=== PATIENT | male | born 1985 | race Caucasian/White ===

== ENCOUNTER 2022-10-02 11:38 | Inpatient (IN) | payer OTHER ==
[~2022-10-02] VITALS: Ht 180.3 cm; Wt 246.5 kg
[2022-10-02 11:56] VITALS: BP 85/52
--- NOTE | 2022-10-02 12:04 | NUR ---
PT HAD SYNCOPAL EPISODE WITH SHAKING MOTION. PT WAS BROUGHT TO BED 2 WITH ERMD AT BEDSIDE. PT SOON BECAME ALERT AND WAS ASSISTED TO BED. PT ANSWERED ALL QUESTIONS FROM ERMD. PT PRESENTS WITH EQUAL EDGE KITTER STRENGTH, SPEAKING IN FULL SENTENCES, NO FACIAL DROOP NOTED.
[2022-10-02] MEDS ORDERED: NACL 0.9% 1,000 ML IV SCH (12:10)
[2022-10-02] MEDS ORDERED: ACETAMINOPHEN EXTRA STRENGTH 500 MG TAB PO ONE (12:10)
[2022-10-02] MEDS ORDERED: NACL 0.9% 1,000 ML IV ONE ×4 (12:10→23:45)
[2022-10-02] MEDS ORDERED: PIPERACILLIN/TAZOBACTAM 3.375 GM in DEXTROSE 5% 50 ML IV ONE (12:15)
[2022-10-02] MEDS ORDERED: PIPERACILLIN/TAZOBACTAM 3.375 GM VIAL IV ONE (12:24)
[2022-10-02 12:32] LABS: BASOPHILS % (AUTO) 0.1 % (0.0-2.0); EOSINOPHILS % (AUTO) 0.3 % (0.0-4.0); HEMATOCRIT 41.8 % (36-52); HEMOGLOBIN 13.5 g/dL (12.0-18.0); LYMPHOCYTES # (AUTO) 0.4 K/uL (2.0-11.5); LYMPHOCYTES % (AUTO) 9.3 % (20.5-51.1); MEAN CORPUSCULAR HEMOGLOBIN 27 pg (27-31); MEAN CORPUSCULAR HGB CONC 32 g/dL (33-37); MEAN CORPUSCULAR VOLUME 81.9 fL (80-94); MONOCYTES % (AUTO) 0.7 % (1.7-9.3); NEUTROPHILS # (AUTO) 4.1 K/uL (1.8-7.7); NEUTROPHILS % (AUTO) 89.6 % (42.2-75.2); PLATELET COUNT (AUTO) 314 K/uL (140-450); RED CELL DISTRIBUTION WIDTH 15.2 % (11.6-13.7); WHITE BLOOD COUNT (AUTO) 4.5 K/uL (4.8-10.8)
[2022-10-02 13:19] LABS: PROTHROMBIN TIME 11.4 secs (10.8-13.4)
[2022-10-02 13:21] LABS: ALBUMIN 3.6 g/dL (3.4-5.0); ANION GAP 12.7 (8-16); ASPARTATE AMINOTRANSFERASE 19 U/L (15-37); CARBON DIOXIDE 26.9 mmol/L (21-32); CHLORIDE 101 mmol/L (98-107); CREATININE 1.4 mg/dL (0.6-1.3); GFR ARICAN-AMERICAN 74 mL/min (>90); GLUCOSE 92 mg/dL (74-106); POTASSIUM 3.6 mmol/L (3.5-5.1); SODIUM SERUM 137 mmol/L (136-145); TOTAL BILIRUBIN 1.3 mg/dL (0.0-1.0); UREA NITROGEN, BLOOD 14 mg/dL (7-18)
--- NOTE | 2022-10-02 15:52 | NUR ---
DC PLANNIN YRS OLD MALE PATIENT WAS ADMITTED FROM HOME WITH A DX OF SEPSIS. PATIENT HAS A HX OF CHRONIC LOWER EXTREMITY SWELLING, MORBID OBESITY. US VENOUS LEFT LOWER EXT SHOED NO DVT SEVER LEFT LEG EDEMA XR LEFT TIBIA/FIBULA SHOWED NO ACUTE OSSEOUS ABNORMALITY ,GENERALIZED SOFT TISSUE SWELLING. CONSULTED WITH NEPHRO, PULMO, CARDIO AND SURGEON. DC PLAN PER PATIENT RESPOND TO THE TREATMENT. CM TO FOLLOW
[2022-10-02] MEDS ORDERED: NACL 0.9% 2,000 ML IV ONE (16:30)
[2022-10-02] MEDS ORDERED: guaiFENesin DM 200/20 MG-10 ML 10 ML UDC PO PRN (16:35)
[2022-10-02] MEDS ORDERED: HYDROcodone/APAP 7.5/325 MG 1 TAB PO PRN (16:35)
[2022-10-02] MEDS ORDERED: MORPHINE SULFATE 2 MG/ML SYR IVP PRN (16:35)
[2022-10-02] MEDS ORDERED: POTASSIUM CHLORIDE 10 MEQ TABER PO PRN (16:35)
[2022-10-02] MEDS ORDERED: ZOLPIDEM 5 MG TAB PO PRN (16:35)
[2022-10-02] MEDS ORDERED: ONDANSETRON 4 MG/2 ML VIAL IM/IVP PRN (16:35)
[2022-10-02] MEDS ORDERED: DOCUSATE SODIUM 100 MG GELCAP PO PRN (16:35)
[2022-10-02] MEDS: NACL 0.9% 1,000 ML IV SCH ×2 (16:50→22:44)
[2022-10-02 17:52] LABS: ANION GAP 13.4 (8-16); CARBON DIOXIDE 24.6 mmol/L (21-32); CREATININE 2.1 mg/dL (0.6-1.3)
[2022-10-02 17:56] LABS: MAGNESIUM 1.3 mg/dL (1.8-2.4); PHOSPHORUS 1.4 mg/dL (2.5-4.9)
[2022-10-02 17:58] LABS: ALBUMIN 2.7 g/dL (3.4-5.0)
--- NOTE | 2022-10-02 19:45 | NUR ---
Patient resting in bed, A/Ox4, chest rise and fall symmetrical, no c/o pain or s/s of discomfort.
--- NOTE | 2022-10-02 20:13 | NUR ---
MED RECONCILE DONE
--- NOTE | 2022-10-02 21:30 | NUR ---
Patient resting in bed, A/Ox4, chest rise and fall symmetrical, no c/o pain or s/s of discomfort.
--- NOTE | 2022-10-02 21:40 | NUR ---
Dr. Sellers with patient. Addendum: 10/02/22 at [id number] Molina with patient.
--- NOTE | 2022-10-02 22:00 | NUR ---
Patient resting in bed, A/Ox4, chest rise and fall symmetrical, no c/o pain or s/s of discomfort.
--- NOTE | 2022-10-02 22:21 | NUR ---
Note mirela in ED - 10/02/22 at 2235 by [id number] Patient will be admitted to care of Oscar BERRIOS. Admited to Telemetry. Will go to room 126B. Belongings list completed. Report to Oscar BERRIOS. Oscar BERRIOS verbalized understanding of report, no further questions.
--- NOTE | 2022-10-02 22:30 | NUR ---
Called Dr. Goncalves 4 times, left message regarding patient's Lactic Acid 5.3 and decreased Magnesium level. Informed Dr. Goncalves to call Med/Tele floor back to speak to receiving nurse.
--- NOTE | 2022-10-02 22:30 | NUR ---
Patient will be admitted to care of Oscar BERRIOS. Admited to Telemetry. Will go to room 126B. Belongings list completed. Report to Oscar BERRIOS. Oscar BERRIOS verbalized understanding of report, no further questions.
[2022-10-02 22:55] VITALS: BP 93/36
--- NOTE | 2022-10-02 22:55 | NUR ---
Patient's Plan of Care was discussed and reviewed with ZOYA GONZALEZ:
--- NOTE | 2022-10-02 22:58 | NUR ---
PT TRANSPORTED FROM ER TO [facility] [[email or web address]] VIA GURNEY. RECEIVED REPORT FROM ER NURSE JAGUAR FOR CONTINUITY OF CARE. PT A/A/O X4, ABLE TO COMMUNICATE NEEDS. RESPIRATIONS EVEN AND UNLABORED ON RA. ATTACHED TO FITNESS WORKER. NOTED LEFT LOWER EXTREMITY SWELLING, PHOTO TAKEN AND FILED. IV SITE ON RAC 20G, INFUSING IVF. V/S TAKEN SEVERAL TIMES. 93/36 HR 135. WILL INFORM MD. MRSA TAKEN AND SENT TO LAB. PENDING URINE COLLECTION, PT AWARE AND URINAL PROVIDED. PT ORIENTED TO ROOM, UNIT AND ROUTINE. CALL LIGHT WITHIN REACH. SAFETY PRECAUTIONS IN PLACE. PT CLOSELY MONITORED. Addendum: 10/03/22 at 0306 by Oscar Guallpa LVN PT'S MG 1.3, NOT YET COVERED. LACTIC ACID 5.3. PER ER NURSE DR CLEARY WAS INFORMED REGARDING MG AND LACTIC ACID. DR CLEARY TO CALL [facility] [[email or web address]] FOR ORDERS.
[2022-10-02] MEDS ORDERED: PIPERACILLIN/TAZOBACTAM 4.5 GM VIAL IV ONE (23:14)
[2022-10-02] MEDS: PIPERACILLIN/TAZOBACTAM 4.5 GM in DEXTROSE 5% 100 ML IV SCH (23:21)
--- NOTE | 2022-10-02 23:33 | NUR ---
INFORMED DR. CLEARY BP-93/36 HR-135, NEW ORDER GIVEN AND WILL BE CARRIED OUT.
[2022-10-03] VITALS (20 sets, daily range): BP systolic 76–120; BP diastolic 33–94
--- NOTE | 2022-10-03 00:37 | NUR ---
1 L BOLUS GIVEN ORDERED, CURRENT BP-107/43 HR -138. CALL PLACED TO DR. CLEARY TO INFORM OF HR. AWAITING CALL BACK.
--- NOTE | 2022-10-03 00:37 | NUR ---
1L BOLUS GIVEN PER MD ORDER. CURRENT BP 107/43, HR 138 AND BEEN SUSTAINING IN THE 130'S. DR CLEARY WAS INFORMED. AWAITING MD'S RESPONSE.
--- NOTE | 2022-10-03 01:22 | NUR ---
RECEIVED CRITICAL LAB VALUE FOR LACTIC ACID 5.1 AND HR SUSTAINING 140'S AT THIS TIME. DR CLEARY MADE AWARE, AWAITING FOR RESPONSE.
--- NOTE | 2022-10-03 02:06 | NUR ---
WITH HR-140'S EVIN YEPEZ AWARE, PER MD MONITOR FOR NOW.
--- NOTE | 2022-10-03 04:38 | NUR ---
BP WENT DOWN AGAIN TO 89/36 AND HR STILL AT 140'S. DR CLEARY MADE AWARE. AWAITING FOR MD RESPONSE.
[2022-10-03] MEDS: NACL 0.9% 1,000 ML IV SCH ×3 (05:05→18:07)
[2022-10-03] MEDS ORDERED: PIPERACILLIN/TAZOBACTAM 2.25 GM VIAL IV ONE (05:15)
[2022-10-03 05:17] LABS: BASOPHILS % (AUTO) 0.1 % (0.0-2.0); EOSINOPHILS # (AUTO) 0.1 K/uL (0-0.4); EOSINOPHILS % (AUTO) 0.7 % (0.0-4.0); HEMATOCRIT 37.4 % (36-52); LYMPHOCYTES # (AUTO) 0.5 K/uL (2.0-11.5); LYMPHOCYTES % (AUTO) 2.6 % (20.5-51.1); MEAN CORPUSCULAR HEMOGLOBIN 26 pg (27-31); MEAN CORPUSCULAR HGB CONC 32 g/dL (33-37); MEAN CORPUSCULAR VOLUME 81.7 fL (80-94); MONOCYTES # (AUTO) 0.4 K/uL (0.8-1.0); MONOCYTES % (AUTO) 2.1 % (1.7-9.3); NEUTROPHILS # (AUTO) 17.7 K/uL (1.8-7.7); NEUTROPHILS % (AUTO) 94.5 % (42.2-75.2); PLATELET COUNT (AUTO) 280 K/uL (140-450); RED BLOOD CELL COUNT(AUTO) 4.57 MIL/uL (4.20-6.10); RED CELL DISTRIBUTION WIDTH 15.6 % (11.6-13.7); WHITE BLOOD COUNT (AUTO) 18.7 K/uL (4.8-10.8)
--- NOTE | 2022-10-03 05:28 | NUR ---
PER DR CLEARY. PT FOR TRANSFER TO ICU, NEEDS TO START LEVOPHED. CN AND HS MADE AWARE, ARRANGING TRANSFER.
[2022-10-03] MEDS: PIPERACILLIN/TAZOBACTAM 4.5 GM in DEXTROSE 5% 100 ML IV SCH (05:34)
[2022-10-03 05:51] LABS: ANION GAP 17.5 (8-16); CARBON DIOXIDE 21.2 mmol/L (21-32); CREATININE 3.3 mg/dL (0.6-1.3); POTASSIUM 4.7 mmol/L (3.5-5.1)
[2022-10-03] MEDS: ACETAMINOPHEN 325 MG TAB PO PRN ×2 (06:35→16:37)
--- NOTE | 2022-10-03 06:35 | NUR ---
PT TRANSPORTED TO ICU. GAVE REPORT TO YASH COOPER. PT AWAKE. ABLE TO HELP TRANSFER TO ICU BED. NO DISTRESS NOTED.
--- NOTE | 2022-10-03 06:58 | NUR ---
PATIENT TRANSFERRED FROM [facility], ARRIVED TO ICU AT 0610. RECEIVED REPORT FROM ZOYA BERRIOS. VITALS OBTAINED AT TIME OF TRANSFER: HR = 136, O2 SAT = 96%, R = 37, BP = 90/42, TEMP = 101.6F PATIENT WAS ADMINISTERED TYLENOL 650MG PER MD ORDERS, CURRENTLY RESTING IN BED COMFORTABLY; DOES NOT APPEAR TO BE IN DISTRESS. WILL ENDORSE TO DAY SHIFT TO FOLLOW UP WITH MD FOR ANY NEW ORDERS
--- NOTE | 2022-10-03 07:31 | NUR ---
TRANSFER OF CARE ENDORSED TO [facility]
--- NOTE | 2022-10-03 07:32 | NUR ---
RECEIVED REPORT FROM RUBBER WASHER NURSE. PATIENT LYING DOWN IN BED, AAOX4, ON ROOM AIR. NO DISTRESS NOTED. ON IVF PER MD ORDERS, NO DRIPS. LAST BP MAP GREATER THAN 65. DENIES ANY PAIN. SAFETY MEASURES IN PLACE, CALL LIGHT WITHIN REACH. WILL CONTINUE TO MONITOR.
[2022-10-03] MEDS ORDERED: VANCOMYCIN PER PHARMACY MC PRN (07:50)
[2022-10-03] MEDS ORDERED: PIPERACILLIN/TAZOBACTAM 4.5 GM in DEXTROSE 5% 100 ML IV SCH ×2 (08:04→13:00)
[2022-10-03 08:42] LABS: APPEARANCE,URINE HAZY (CLEAR); BILIRUBIN,URINE NEGATIVE (NEGATIVE); BLOOD, URINE NEGATIVE (NEGATIVE); COLOR,URINE YELLOW (YELLOW); LEUKOCYTE ESTERASE ,URINE TRACE (NEGATIVE); NITRITE, URINE NEGATIVE (NEGATIVE); PH,URINE 5.5 (5.0-9.0); UGLUCOSE NEGATIVE (NEGATIVE)
[2022-10-03 08:53] LABS: RBC,URINE 0-5 /HPF (0-5); URINE AMORPHOUS URATE 1+ /HPF (None Seen)
[2022-10-03 09:02] LABS: BARBITURATE, URINE NEGATIVE ng/ml (NEG <=200); BENZODIAZEPINE, URINE NEGATIVE ng/mL (NEG <=200); CANNABINOID, URINE NEGATIVE ng/mL (NEG <=50); COCAINE, URINE NEGATIVE ng/mL (NEG <=300); OPIATE, URINE NEGATIVE ng/mL (NEG <=2000); PHENCYCLIDINE SCREEN,URINE NEGATIVE ng/mL (NEG <=25)
[2022-10-03] MEDS: PANTOPRAZOLE 40 MG TABEC PO SCH (09:29)
[2022-10-03] MEDS: VANCOMYCIN 1.25GM PREMIX 250 ML IV SCH ×2 (09:29→20:34)
--- NOTE | 2022-10-03 09:37 | NUR ---
SCHEDULED MEDICATIONS DUE GIVEN. ASSISTED PATIENT TO BM X 1 BEDPAN, CLEANED. WILL CONTINUE TO MONITOR.
[2022-10-03] MEDS: NOREPINEPHRINE 4 MG in DEXTROSE 5% 250 ML IV PRN (10:07)
--- NOTE | 2022-10-03 10:11 | NUR ---
PATIENT HAS BEEN SCREENED AND CATEGORIZED HIGH NUTRITION RISK. PATIENT WILL BE SEEN WITHIN 1-2 DAYS OF ADMISSION. REVIEWED BY CASA PADILLA RD
--- NOTE | 2022-10-03 10:17 | NUR ---
PICC NURSE AT BEDSIDE INSERTING PICC LINE. WILL CONTINUE TO MONITOR.
--- NOTE | 2022-10-03 14:14 | NUR ---
DR. JAY AT BEDSIDE EVALUATING PATIENT. WILL CONTINUE TO MONITOR.
--- NOTE | 2022-10-03 15:39 | NUR ---
10/03/22 RD INITIAL ASSESSMENT COMPLETED PLEASE REFER TO NUTRITION ASSESSMENT UNDER CARE ACTIVITY FOR ESTIMATED NUTRITIONAL NEEDS. 1. RECOMMEND RENAL DIET TOLERATED 2. EDUCATED PT ON EVELINE NUTRITION THERAPY. 3. MONITOR GI, PO INTAKE, LAB VALUES. 4. RD TO FOLLOW-UP 2-3 DAYS, HIGH RISK REVIEWED BY CASA PADILLA RD
[2022-10-03] MEDS: LORazepam 2 MG/ML VIAL IVP PRN ×2 (16:15→23:22)
--- NOTE | 2022-10-03 16:15 | NUR ---
COMPLAINS OF ANXIETY, ATIVAN PRN IVP GIVEN PER ORDERS. WILL CONTINUE TO MONITOR.
--- NOTE | 2022-10-03 16:21 | NUR ---
DC PLANNIN YRS OLD MALE PATIENT WAS ADMITTED FROM HOME WITH A DX OF SEPSIS. PATIENT HAS A HX OF CHRONIC LOWER EXTREMITY SWELLING, MORBID OBESITY. US VENOUS LEFT LOWER EXT SHOED NO DVT SEVER LEFT LEG EDEMA XR LEFT TIBIA/FIBULA SHOWED NO ACUTE OSSEOUS ABNORMALITY ,GENERALIZED SOFT TISSUE SWELLING. CONSULTED WITH NEPHRO, PULMO, CARDIO AND SURGEON. DC PLAN PER PATIENT RESPOND TO THE TREATMENT. CM TO FOLLOW Addendum: 10/04/22 at 1627 by Citlaly Lang RN DC PLANNING: PATIENT INTUBATED SEDATED ON PRECEDEX, VERSED, VASOPRESSIN AND SODIUM BICARB DRIP . WBC 31.1 K+ 6.5 B/C 47/6.2 ADMINISTERED IV ABX UNASYN. URINE AND SPUTUM CULTURE PENDING. DR JAY ORDERED FOR TRANSFER TO HIGHER LEVEL OF CARE FOR CRRT. FAXED TO [facility] [place], [facility], [facility] ,[facility]. CM TO FOLLOW Addendum: 10/04/22 at 1640 by Citlaly Lang RN DC PLANNING: RECEIVED A CALL FROM [facility] SPOKE WITH DEZ STATED UNABLE TO TAKE PATIENT BECAUSE OF CO-MORBIDITY. CM TO FOLLOW Addendum: 10/05/22 at 1706 by Citlaly Lang RN DC PLANNING: AT 9:30 AM CM SPOKE WITH [facility] STATED UNABLE TO TAKE PATIENT , [facility] NO BED AVAILABLE [facility] DON'T HAVE CRRT. CM SPOKE WITH PATIENT'S FAMILY COUSIN SPOKES PERSON FOR THE FAMILY [phone] UPDATED PT'S CLINICAL [facility] SPOKE WITH JAQUI STATED STILL ON REVIEWING. CM TO FOLLOW Addendum: 10/05/22 at 1714 by Citlaly Lang RN DC PLANNING: CM SPOKE WITH DR RUIZ AND TAILINGS DAM LABORER, BOTH DR SPOKE WITH FAMILY UPDATED THE CURRENT SITUATION. STILL AWAITING FOR [facility] CM SPOKE WITH DR URIZ AND PER CAN ACCEPT PATIENT AT [facility] CM NOTIFIED IRIS AT [facility]. CM CALLED [facility] SPOKE WITH RYANN MINAYA FOR [place] [phone] AND FOR TRANSPORT [phone] . ARRANGED TRANSPORT WITH [facility] PLACE IT WILL CALL. CM TO FOLLOW Addendum: 10/05/22 at 1749 by Citlaly Lang RN DC PLANNING: RECEIVED A CALL FROM [facility] TRAN[facility] SPOKE WITH PETEY UPDATED PT'S CLINICAL AND PROVIDE HER DR CLEARY AND DR RUIZ'S NUMBER PER PETEY STATED SHE NEEDED THE TRANSFER BACK AGREEMENT TO BE SIGNED. SHANE NIELSEN KELLEYKENY SIGNED THE TRANSFER BACK AGREEMENT AND FAXED TO [facility]. ARRANGED TRANSPORT PLACE IT WILL CALL. UPDATED ALL LATEST INFORMATION TO FAMILY AND NURSE ICU PLS CALL [facility] [phone] WHEN BED AVAILABLE. Addendum: 10/08/22 at 1517 by Citlaly Lang RN DC PLANNING: NOLBERTO AND DR CLEARY SPOKE WITH PT'S COUSIN DISCUSSED THE HIGHER LEVEL OF CARE PATIENT IS HAVING DIALYSIS DAILY PER FAMILY INSISTED TO TRANSFER TO [facility]. RECEIVED A CALL FROM [facility] REQUESTING UPDATED CLINICALS FAXED ALL PAPERWORK. CALLED JULIO CESAR LEFT A MESSAGE FOR CYNDY . CM TO FOLLOW Addendum: 10/09/22 at 1252 by Citlaly Lang RN DC PLANNING: RECEIVED A CALL FROM [facility] [phone] SPOKE WITH JOSE J REJI STILL AWAITING FOR CLEARANCE FROM THEIR BUSINESS OFFICE. CALLED FIFI HARRELL CM COVERING FOR CYNDY TO CLARIFY THE AUTHORIZATION FROM THEIR PORTAL. CM TO FOLLOW Addendum: 10/10/22 at 0922 by Citlaly Lang RN LATE ENTRY 10/09/22 1630 CALLED [facility] TRANSFER [facility] SPOKE WITH JOSE J [phone] STATED FINANCIALLY CLEARED STILL AWAITING FOR BED AND ACCEPTING DRSiddharth CALLED [facility] STILL NO BED AVAILABLE. CALLED PT'S COUSIN MCKENZIE [phone] UPDATED THE STATUS OF TRANSFER CM TO FOLLOW Addendum: 10/10/22 at 1423 by Citlaly Lang RN DC PLANNING: RECEIVED A CALL FROM [facility] SPOKE WITH JEISON STATED DR RUIZ (MARKETING EFFECTIVENESS MANAGER) TOLD HER PATIENT NEEDS FASCIOTOMY ON HIS LOWER EXTREMITIES PER [place] SHE REQUESTED THE SURGEON NOTES TO BE FAXED. CM FAXED DR GOLDEN'S NOTES AND WOUND CARE NOTES. PER JEISON ONCE SHE HAS THAT WILL REACH OUT THE GENERAL SURGEON TO ACCEPT PATIENT. CM TO FOLLOW. Addendum: 10/10/22 at 1726 by Citlaly Lang RN DC PLANNING: RECEIVED A CALL FROM [facility] SPOKE WITH DEBBIE MENDOZA CAN ACCEPT PATIENT CAN GO TO ROOM 8315 # TO GIVE REPORT [phone] [place] [address] CIERA JAMA . ARRANGED TRANSPORT WITH [facility] UPTIME 8PM. NOTIFIED PT COUSIN FRENCH AND NURSE LEO. ARVIZU TO FOLLOW
--- NOTE | 2022-10-03 16:30 | NUR ---
ORAL TEMP 102.4, TYLENOL GIVEN AT THIS TIME.
--- NOTE | 2022-10-03 16:45 | NUR ---
RR 40'S, HR: 150-160'S SINUS TACHY, SHALLOW BREATHING, WHEEZING THROUGHOUT ALL LOBES, ATIVAN 2 MG IVP GIVEN EARLIER FOR ANXIETY. DR. JAY NOTIFIED. RT TRIED PLACING BIPAP, UNABLE TO TOLERATE, TOO ANXIOUS, HIGH FLOW STARTED AT 50% OXYGEN.
[2022-10-03] MEDS: ALBUTEROL 0.083% 2.5 MG/3 ML NEBU INH PRN ×3 (17:00→19:51)
--- NOTE | 2022-10-03 18:09 | NUR ---
PATIENT ANXIOUS, CONTINUES TO TAKE OFF HIGH FLOW, SAYS OXYGEN NOISE MAKES HIM ANXIOUS. WILL CONTINUE TO MONITOR.
--- NOTE | 2022-10-03 18:10 | NUR ---
ATTEMPTED TO PLACE PAINTING CATHETER, UNABLE TO SEE PENIS OR URETHRA OPENING, ANOTHER RN TRIED, FAILED WELL. WILL CONTINUE MONITOR.
--- NOTE | 2022-10-03 19:28 | NUR ---
GAVE REPORT TO SPORTS UMPIRE NURSE FOR CONTINUITY OF CARE.
--- NOTE | 2022-10-03 19:30 | NUR ---
RECEIVED PT ON BED AAOX4, DENIES PAIN AT THIS TIME, SEVERELY DYSPNEIC.NOT ON O2 SUPPLEMENT WHEN RECEIVED. EXPLAINED TO PT IMPORTANCE OF O2 AND BEING COM[PLIANT WITH CARE, VERBALIZED UNDERSTANDING. RESTARTED HI-FLOW ORDERED, BUT EVERY IT SLID OFF FROM EARLOBES. RT TENRIISM AT BEDSIDE MADE AWARE THAT PT NOW AGREES TO BIPAP. PT'S DAD AT BEDSIDE UPDATED ON PT CONDITION, NODDED FOR UNDERSTANDING. HR 150'S. CONT TO MONITOR.
--- NOTE | 2022-10-03 20:08 | NUR ---
PT'S COUSIN TANVIR BILLINGSLEY AT BEDSIDE WITH PT'S DAD, UPDATED ON PT CONDITION. RE EDUCATED PT AGAIN REGARDING IMPORTANCE OF BIPAP, BOTH COUSIN AND PT'S DAD ABLE TO WITNESS RE-EDUCATION, PT VERBALIZED UNDERSTANDING. RT AT BEDSIDE.
--- NOTE | 2022-10-03 20:28 | NUR ---
BIPAP ON. PT REMAINS DYSPNEIC, HR 150'S, ON LEVOPHED AT 4 MCG. ASSESSMENT CONTINUED. PT IS MORBIDLY OBESE, LLE MORE SWOLLEN THAN RIGHT AND WITH REDNESS. NEEDS ATTENDED. CALL LIGHT WITHIN REACH. CONT TO MONITOR.
--- NOTE | 2022-10-03 20:30 | NUR ---
PT IN RESPIRATORY DISTRESS. RR IN 40s, HR 150s. SPO2 92% TO 96%. PT VERY ANXIOUS. PT's DAD AND COUSIN AT BEDSIDE, ALL RESPIRATORY QUESTIONS WERE ANSWERED. EXPLAINED TO FAMILY THAT PT HAS BEEN REFUSING BiPAP AND CONTINUES TO TAKE OFF HFNC. RISKS AND BENEFITS WERE EXPLAINED. FAMILY WERE ABLE TO CONVINCE PT TO TRY BiPAP. PT WAS PLACED ON BiPAP. 14/7, 14, 40%. BiPAP CONNECTED TO RED OUTLET.
--- NOTE | 2022-10-03 20:50 | NUR ---
PT REMOVING BIPAP, NOT FOLLOWING SIMPLE INSTRUCTIONS/COMMANDS. PT ALSO PULLING OUT LEADS. PT VERY NOT COOPERATIVE WITH CARE. HR AND RR REMAINS HIGH.
--- NOTE | 2022-10-03 20:50 | NUR ---
PT TOOK BiPAP MASK OFF. REFUSED TO BE PLACED BACK. PLACED HIM ON 5L NC PT TOOK IT OFF. PT's SPO2 IN 90s ON ROOM AIR, RR STILL IN 40s AND HR 150s. STILL ANXIOUS.
--- NOTE | 2022-10-03 21:05 | NUR ---
PAGED GROUP CONTRACT ANALYST CHARACTER IMPERSONATOR DR. JAY.
--- NOTE | 2022-10-03 21:10 | NUR ---
MESSAGE LEFT FOR DR. JAY REGARDING PT CRITICAL CONDITION. AWAITING FOR A RETURN CALL.
--- NOTE | 2022-10-03 21:15 | NUR ---
RECEIVED A RETURN CALL FROM DR. JAY - UPDATED ON PT CONDITION. ORDERED TO START PRECEDEX DRIP PER HOSP PROTOCOL AND TO INFORM ER FOR INTUBATION IF CONDITION WORSENS. RELAYED INFO LEANNA PATIENT, VERBALIZED UNDERSTANDING.
--- NOTE | 2022-10-03 21:17 | NUR ---
DR. JAY CALLED BACK. DOCTOR WAS INFORMED THAT PT WAS PLACED ON BiPAP DUE TO INCREASE WOB RR 40s AND HR 140s. PT TOOK OFF BiPAP AND REFUSING ALL RESPIRATORY INTERVENTION AT THIS TIME. PT NOW ON ROOM AIR WITH SPO2 IN 90s. STILL IN RESPIRATORY DISTRESS. DR JAY SPOKE TO RN AND ORDERED FOR PRECEDEX.
[2022-10-03] MEDS ORDERED: DEXMEDETOMIDINE HCL 100 MCG/ML 2 ML VIAL IV ONE ×2 (21:24→23:59)
[2022-10-03] MEDS: DEXMEDETOMIDINE HCL 400 MCG in NACL 0.9% 96 ML IV PRN (21:41)
--- NOTE | 2022-10-03 21:58 | NUR ---
CALLED AND SPOKE WITH PT'S COUSIN AGAIN, INFORMING HIM PT REQUESTING HIM AND HIS DAD TO COME HERE. PT'S COUSIN TANVIR BILLINGSLEY SAID HE WILL COME WITH PT'S DAD. RELAYED INFO TO PT. PT REMAINS NONCOMPLIANT WITH CARE, REFUSING OW2 AND/OR BIPAP AT THIS TIME. RT AT BEDSIDE.
--- NOTE | 2022-10-03 22:15 | NUR ---
PT PULLED OUT PICC LINE, CONT TO REFUSE TO BE MONITORED AND O2 SUPPLEMENT. PT ORIENTED X4, DENIES PAIN AT THIS TIME. TRANSFERRED INFUSION TO PERIPHERAL LINE G#20 RIGHT AC.
--- NOTE | 2022-10-03 22:37 | NUR ---
ABG RESULTS WERE REPORTED TO DR. JAY. DOCTOR ORDERED TO PLACED PT BACK ON BiPAP. DAD AND COUSIN AT BEDSIDE, PT STILL REFUSED TO USED BiPAP. RISKS AND BENEFITS EXPLAINED. SPO2 88 TO 90 0N 4L NC. RR IN 40s. PT PULL OUT PICC LINE.
--- NOTE | 2022-10-03 23:55 | NUR ---
PT'S SISTER, DAD AND COUSIN AT BEDSIDE UPDATED ON PT CONDITION. PT WITH PERIODS OF SEVERE AGITATION.
[2022-10-04] VITALS (26 sets, daily range): BP systolic 65–128; BP diastolic 27–81
[2022-10-04] MEDS ORDERED: AMPICILLIN/SULBACTAM 1.5 GM in NACL 0.9% 50 ML IV SCH ×2
[2022-10-04] MEDS: NACL 0.9% 1,000 ML IV SCH ×2 (00:09→06:46)
[2022-10-04] MEDS ORDERED: AMPICILLIN/SULBACTAM 1.5 GM VIAL ONE (00:20)
[2022-10-04] MEDS: AMPICILLIN/SULBACTAM 1.5 GM in NACL 0.9% 50 ML IV SCH ×3 (00:22→12:55)
[2022-10-04] MEDS ORDERED: DEXMEDETOMIDINE HCL 100 MCG/ML 2 ML VIAL IV ONE (02:09)
--- NOTE | 2022-10-04 02:32 | NUR ---
MESSAGE LEFT FOR DR. JAY REGARDING PT'S WORSENING CONDITION. NEW ORDERS GIVEN, NOTED AND CARRIED OUT.
[2022-10-04] MEDS: MIDAZOLAM MDV 50 MG in NACL 0.9% 40 ML IV PRN ×3 (02:44→12:08)
[2022-10-04] MEDS ORDERED: MIDAZOLAM MDV 50 MG/10 ML VIAL IV ONE (02:44)
--- NOTE | 2022-10-04 03:00 | NUR ---
PT INTUBATED RESTRAINTS IN PLACE.
[2022-10-04] MEDS: fentaNYL citrate 1 MG in NACL 0.9% 80 ML IV PRN ×3 (03:02→08:11)
[2022-10-04] MEDS ORDERED: fentaNYL citrate 0.05 MG/ML VIAL ONE ×2 (03:02→06:46)
[2022-10-04] MEDS ORDERED: PROPOFOL 200 MG/20 ML VIAL IV ONE (03:10)
--- NOTE | 2022-10-04 03:40 | NUR ---
SPUTUM COLLECTED AND SENT TO LAB
--- NOTE | 2022-10-04 03:45 | NUR ---
CALLED TO BEDSIDE FOR INTUBATION PER DR. JAY. PT WAS SUCCESSFULLY INTUBATED BY DR. EPPERSON (ER DOCTOR) AT APPROXIMATELY 0353. ETT SIZE 8.0 AND SECURED @26cm @TEETH. BILATERAL BREATH SOUNDS ON AUSCULTATION, COLOR CHANGE ON CO2 DETECTOR. X RAY ORDERED. PT WAS PLACED ON VENT AND VENT CONNECTED TO RED OUTLET. ALARMS SET AND FUNCTIONING. SETTINGS PRVC 16, 500, +8, 100. Addendum: 10/04/22 at 0519 by Arturo Boo RT TIME OF INTUBATION 0253
[2022-10-04] MEDS ORDERED: VASOPRESSIN 20 UNITS/ML VIAL ONE ×2 (04:20→18:05)
[2022-10-04] MEDS ORDERED: VASOPRESSIN 40 UNITS in NACL 0.9% 250 ML IV SCH (04:25)
--- NOTE | 2022-10-04 04:30 | NUR ---
ABG RESULTS REPORTED TO DR. JAY. VENT CHANGES MADE PER DR. JAY. RR INCREASED FROM 16 TO 20, VT 500 TO 550 ABOUT 7mL OF PT's IBW. PEEP FROM 8 TO 6cmH20. FiO2 TITRATED TO 60%.
[2022-10-04] MEDS ORDERED: SODIUM BICARBONATE 4.2% 5 MEQ/10 ML SYR IV SCH (04:35)
[2022-10-04] MEDS ORDERED: NOREPINEPHRINE 4 MG/4 ML VIAL IV ONE ×3 (04:36→21:31)
[2022-10-04] MEDS: NOREPINEPHRINE 4 MG in DEXTROSE 5% 250 ML IV PRN (04:42)
[2022-10-04 05:48] LABS: BASOPHILS # (AUTO) 0.3 K/uL (0.00-0.22); EOSINOPHILS # (AUTO) 0.7 K/uL (0-0.4); EOSINOPHILS % (AUTO) 2.1 % (0.0-4.0); HEMATOCRIT 37.7 % (36-52); LYMPHOCYTES # (AUTO) 0.6 K/uL (2.0-11.5); LYMPHOCYTES % (AUTO) 2.1 % (20.5-51.1); MEAN CORPUSCULAR HEMOGLOBIN 26 pg (27-31); MEAN CORPUSCULAR HGB CONC 32 g/dL (33-37); MEAN CORPUSCULAR VOLUME 82.6 fL (80-94); MONOCYTES # (AUTO) 0.7 K/uL (0.8-1.0); MONOCYTES % (AUTO) 2.3 % (1.7-9.3); NEUTROPHILS # (AUTO) 28.8 K/uL (1.8-7.7); NEUTROPHILS % (AUTO) 92.5 % (42.2-75.2); PLATELET COUNT (AUTO) 287 K/uL (140-450); RED BLOOD CELL COUNT(AUTO) 4.56 MIL/uL (4.20-6.10); RED CELL DISTRIBUTION WIDTH 16.2 % (11.6-13.7)
[2022-10-04 05:51] LABS: WHITE BLOOD COUNT (AUTO) 31.1 K/uL (4.8-10.8)
[2022-10-04 06:17] LABS: ANION GAP 18.8 (8-16); CARBON DIOXIDE 22.7 mmol/L (21-32)
[2022-10-04 06:22] LABS: CREATININE 6.2 mg/dL (0.6-1.3); POTASSIUM 6.5 mmol/L (3.5-5.1)
--- NOTE | 2022-10-04 06:30 | NUR ---
MESSAGED DR PIÑA FOR WBC 31.1. AFEBRILE AT THIS TIME.
--- NOTE | 2022-10-04 07:00 | NUR ---
RECEIVED PT ON PRVC 550,F20,+6, 60%. PT SATURATION WAS 100%, TITRATED FI02 TO 50%. VENT WHEELS ARE LOCKED, PLUGGED INTO RED OUTLET, AMBUBAG AT BEDSIDE, ALARMS ARE SET AND AUDIBLE. ABG SCHEDULED AT 0800. WILL CONTINUE TO MONITOR.
--- NOTE | 2022-10-04 07:15 | NUR ---
CALLED AND LEFT MESSAGEAS FOR PT'S COUSIN TANVIR AND PT'S SISTER PARESH. AWAITING FOR RETURN CALL.
[2022-10-04] MEDS ORDERED: SODIUM BICARBONATE 8.4% PFS 50 MEQ/50 ML SYR IVP ONE (07:25)
--- NOTE | 2022-10-04 07:30 | NUR ---
PT SEDATED, RASS -2. ENDORSED TO INCOMING NURSE HOLLIE. GEN CONDITION CRITICAL.
--- NOTE | 2022-10-04 07:55 | NUR ---
SLOANE COMPLETED AND SENT MESSAGE TO DR. JAY. NO VENT CHANGES AT THIS TIME.
[2022-10-04] MEDS ORDERED: SODIUM ZIRCONIUM CYCLOSILICATE 10 GM POWD.PACK PO SCH (08:00)
[2022-10-04] MEDS ORDERED: DEXTROSE 50% 50 ML SYR IVP SCH (08:00)
[2022-10-04] MEDS ORDERED: INSULIN REGULAR, HUMAN 100 UNIT/ML VIAL IV SCH (08:00)
[2022-10-04] MEDS ORDERED: CALCIUM GLUC 1 GM/50 mL NS BAG 50 ML IV SCH (08:00)
[2022-10-04] MEDS ORDERED: NACL 0.9% 1,000 ML IV SCH (08:05)
--- NOTE | 2022-10-04 08:16 | NUR ---
FATHER PRESENT AT BEDSIDE AND DR. EVIN DOWNEY. PHONE CALL TO VIDEO MANAGER ID #[id number] TO TRANSLATE MOHAWK AND UPDATE FATHER ON PT STATUS. CONSENT FOR PICC LINE ALSO OBTAINED.
[2022-10-04] MEDS: PANTOPRAZOLE 40 MG TABEC PO SCH (09:00)
[2022-10-04] MEDS: SODIUM BICARBONATE 8.4% 150 MEQ in DEXTROSE 5% 1,000 ML IV SCH ×2 (10:18→20:07)
--- NOTE | 2022-10-04 11:24 | NUR ---
INSERTED 12 FR COUDE TIP PAINTING CATHETER WITH IMMEDIATE RETURN OF YELLOW URINE OUTPUT. PT TOLERATED WELL.
[2022-10-04] MEDS: ACETAMINOPHEN 325 MG TAB PO PRN (11:42)
[2022-10-04] MEDS: HYDROCORTISONE NA SUCC 100 MG/2 ML VIAL IV SCH ×2 (12:54→12:55)
[2022-10-04] MEDS: PHENYLEPHRINE 10 MG in NACL 0.9% 250 ML IV PRN ×2 (12:55→14:42)
[2022-10-04] MEDS: PHENYLEPHRINE 40 MG in NACL 0.9% 250 ML IV PRN ×3 (12:55→22:43)
[2022-10-04] MEDS ORDERED: EPINEPHrine 1 mg/mL 6 MG in DEXTROSE 5% 250 ML IV PRN (13:30)
--- NOTE | 2022-10-04 13:54 | NUR ---
ABG DONE. TEXT DR JAY WITH RESULTS. PH 7.245,PCO2 42.6, HC03 18.1, BE -8.8. THB 12.8, COHB 0.9, METHB 0.3, FHHB 1.9, O2 SAT 97.0. VENT RATE INCREASE FROM 25 TO 30. REPEAT ABG AT 050Sep.
--- NOTE | 2022-10-04 14:26 | NUR ---
ALFIE BILLINGSLEY CALLED AND ASKED TO TRANSFER PT TO ANOTHER HOSPITAL. DR. JAY SAID WE CAN CONSULT CASE MANAGEMENT TO TRANSFER TO HOSPITAL WITH CRRT IF POSSIBLE.
[2022-10-04] MEDS ORDERED: PHENYLEPHRINE 10 MG/ML VIAL ONE ×2 (15:52→15:54)
--- NOTE | 2022-10-04 16:12 | NUR ---
DC PLANNING ASSESSMENT COMPLETE PLEASE REFER TO ASSESSMENT FOR DETAILS PT CURRENTLY HAS HLOC ORDER PENDING, CM WORKING ON IDENTIFYING HLOC PLACEMENT Addendum: 10/04/22 at 1613 by Oralia MILLAN Amended: Links added.
[2022-10-04] MEDS: fentaNYL citrate - 50mL vial 2.5 MG in NACL 0.9% 200 ML IV PRN (16:47)
[2022-10-04] MEDS ORDERED: CEFEPIME 1,000 MG in DEXTROSE 5% 50 ML IV SCH (17:05)
[2022-10-04 17:36] LABS: ALBUMIN 2.6 g/dL (3.4-5.0); ANION GAP 21.2 (8-16); CARBON DIOXIDE 20.1 mmol/L (21-32); POTASSIUM 5.3 mmol/L (3.5-5.1)
[2022-10-04 17:37] LABS: CREATININE 7.1 mg/dL (0.6-1.3)
--- NOTE | 2022-10-04 18:00 | NUR ---
P.T. NOTES HOLD P.T. TX, WILL AWAIT P.T. RE EVAL ORDER POST EXTUBATION; BP=88/45, TJ=522, O2 SAT=96%; WBC=31.1, CREATININE=7.1
--- NOTE | 2022-10-04 18:24 | NUR ---
RECEIVED REPORT FROM AM SHIFT. PATIENT WAS SEEN AND ASSESSED. PATIENT IS INTUBATED WITH ETT SIZE 8.0 AND SECURED WITH A BITING BLOCK ANCHOR-FAST 27cm @ TEETH. PATIENT IS ON VENTILATOR SUPPORT. VENTILATOR PLUGGED IN RED OUTLET. VENTILATOR ALARMS SET APPROPRIATELY AND AUDIBLE TO ENVIRONMENT. AMBU BAG AT BEDSIDE. HEAD OF BED GREATER THAN 30 DEGREES. NOTICED ADEQUATE BILATERAL CHEST RISE AND FALL. PATIENT IS IN NO RESPIRATORY DISTRESS AT THIS TIME. VENT SETTINGS: AC/PRVC RR 30, TARGETED Vt 550, PEEP 6, FiO2 50% WITH SPO2 OF 97%. BILATERAL BREATH SOUNDS ON AUSCULTATION; UPPER LOBES: COARSE CRACKLES LOWER LOBES: COARSE CRACKLES. SUCTION: SMALL AMOUNT OF WHITE THIN/THICK SECRETIONS FROM ETT AND SMALL WHITE THIN ORALLY.
--- NOTE | 2022-10-04 20:01 | NUR ---
END OF SHIFT NOTE. PT RECVD ON 2MCG/KG/HR OF FENT, MAXXED OUT ON LEVO AND NOREPI GTT. ER MD PLACED TLC. PT VS UNSTABLE. FAMILY NOTIFIED. SEE FLOWSHEET FOR FURTHER INFO. WILL CONT TO MONITOR
[2022-10-04] MEDS: CEFEPIME 1,000 MG in DEXTROSE 5% 50 ML IV SCH (20:38)
[2022-10-04] MEDS: NOREPINEPHRINE 16 MG in DEXTROSE 5% 250 ML IV PRN (22:40)
[2022-10-04] MEDS: DEXMEDETOMIDINE HCL 400 MCG in NACL 0.9% 96 ML IV PRN (22:43)
--- NOTE | 2022-10-04 23:35 | NUR ---
AT BEDSIDE, SPO2 97%. TITRATED FiO2 FROM 50% TO 45%. SPO2 97%. PT TOLERATING WELL AT THIS TIME. RN NOTIFIED. WILL CONTINUE TO MONITOR PT.
[2022-10-05] VITALS (31 sets, daily range): BP systolic 108–147; BP diastolic 43–91
[2022-10-05] MEDS ORDERED: DEXMEDETOMIDINE HCL 100 MCG/ML 2 ML VIAL IV ONE (00:14)
[2022-10-05] MEDS: DEXMEDETOMIDINE HCL 400 MCG in NACL 0.9% 96 ML IV PRN (00:37)
[2022-10-05] MEDS: HYDROCORTISONE NA SUCC 100 MG/2 ML VIAL IV SCH ×4 (00:47→17:38)
[2022-10-05] MEDS: AMPICILLIN/SULBACTAM 1.5 GM in NACL 0.9% 50 ML IV SCH ×2 (00:47→12:02)
--- NOTE | 2022-10-05 04:13 | NUR ---
AT BEDSIDE, SPO2 97%. TITRATED FiO2 FROM 45% TO 40%. SPO2 96%. PT TOLERATING WELL AT THIS TIME. RN NOTIFIED. WILL CONTINUE TO MONITOR PT.
[2022-10-05 05:32] LABS: BASOPHILS % (AUTO) 0.1 % (0.0-2.0); EOSINOPHILS # (AUTO) 0.3 K/uL (0-0.4); EOSINOPHILS % (AUTO) 1.1 % (0.0-4.0); HEMOGLOBIN 11.9 g/dL (12.0-18.0); LYMPHOCYTES # (AUTO) 0.4 K/uL (2.0-11.5); LYMPHOCYTES % (AUTO) 1.8 % (20.5-51.1); MEAN CORPUSCULAR HEMOGLOBIN 26 pg (27-31); MEAN CORPUSCULAR HGB CONC 32 g/dL (33-37); MEAN CORPUSCULAR VOLUME 80.7 fL (80-94); MONOCYTES # (AUTO) 0.7 K/uL (0.8-1.0); MONOCYTES % (AUTO) 2.8 % (1.7-9.3); NEUTROPHILS % (AUTO) 94.2 % (42.2-75.2); PLATELET COUNT (AUTO) 206 K/uL (140-450); RED BLOOD CELL COUNT(AUTO) 4.59 MIL/uL (4.20-6.10); RED CELL DISTRIBUTION WIDTH 16.1 % (11.6-13.7); WHITE BLOOD COUNT (AUTO) 24.4 K/uL (4.8-10.8)
[2022-10-05 06:23] LABS: ANION GAP 18.9 (8-16); CARBON DIOXIDE 21.2 mmol/L (21-32); POTASSIUM 5.1 mmol/L (3.5-5.1)
[2022-10-05 06:25] LABS: CREATININE 7.8 mg/dL (0.6-1.3)
--- NOTE | 2022-10-05 07:15 | NUR ---
RECEIVED PT ON PRVC 550,F30, +6,40%. VENT WHEELS ARE LOCKED, PLUGGED INTO RED OUTLET, AMBUBAG AT BEDSIDE, ALARMS ARE SET AND AUDIBLE. BREATH SOUNDS WERE CLEAR, SATURATION WAS 97%. WILL CONTINUE TO MONITOR.
[2022-10-05] MEDS: MIDAZOLAM MDV 50 MG in NACL 0.9% 40 ML IV PRN ×2 (07:29→14:43)
[2022-10-05] MEDS: CEFEPIME 1,000 MG in DEXTROSE 5% 50 ML IV SCH ×2 (08:45→21:44)
[2022-10-05] MEDS: SODIUM BICARBONATE 8.4% 150 MEQ in DEXTROSE 5% 1,000 ML IV SCH ×2 (09:53→19:35)
[2022-10-05] MEDS: NOREPINEPHRINE 16 MG in DEXTROSE 5% 250 ML IV PRN (09:54)
[2022-10-05] MEDS: PANTOPRAZOLE 40 MG INJ VIAL IVP SCH (09:56)
[2022-10-05] MEDS ORDERED: CALCIUM GLUC 1 GM/50 mL NS BAG 50 ML IV ONE (10:40)
[2022-10-05] MEDS ORDERED: SODIUM BICARBONATE 8.4% PFS 50 MEQ/50 ML SYR IVP SCH (10:46)
[2022-10-05] MEDS ORDERED: MIDAZOLAM 2 MG/2 ML VIAL ONE (10:47)
--- NOTE | 2022-10-05 10:47 | NUR ---
Dr. Tana adam, pt's father Scott present at bedside and informed regarding dialysis and dialysis catheter placement. Consent signed. Flight Control Tower Operator utilized for consent and updates: Carson ID#[id number]
[2022-10-05] MEDS: fentaNYL citrate - 50mL vial 2.5 MG in NACL 0.9% 200 ML IV PRN (11:00)
[2022-10-05] MEDS ORDERED: MIDAZOLAM 5 MG/5 ML VIAL IV ONE (12:00)
[2022-10-05] MEDS: CALCIUM GLUC 1 GM/50 mL NS BAG 50 ML IV SCH ×2 (12:01→13:22)
--- NOTE | 2022-10-05 12:49 | NUR ---
Pt's father Scott provided with updates via land acquisition manager ID# [id number]
[2022-10-05 15:52] LABS: ALBUMIN 2.2 g/dL (3.4-5.0); ANION GAP 18.4 (8-16); CARBON DIOXIDE 21.4 mmol/L (21-32); POTASSIUM 4.8 mmol/L (3.5-5.1); TOTAL BILIRUBIN 2.3 mg/dL (0.0-1.0)
[2022-10-05 15:59] LABS: CREATININE 8.5 mg/dL (0.6-1.3)
--- NOTE | 2022-10-05 16:21 | NUR ---
[address] JAY. NO VENT CHANGES AT THIS TIME. PT CURRENTLY ON PRVC 550,30,+6,40%. WILL CONTINUE TO MONITOR.
--- NOTE | 2022-10-05 16:26 | NUR ---
10/05/22 RD FOLLOW UP COMPLETED PLEASE REFER TO NUTRITION ASSESSMENT UNDER CARE ACTIVITY FOR ESTIMATED NUTRITIONAL NEEDS. 1. CONTINUE NPO, PER MD 2. WHEN/IF MEDICALLY APPROPRIATE, RECOMMEND RENAL DIET - IF PT GETS TUBE FEEDING, RECOMMEND NEPRO @35 ML/HR, FWF 100 ML Q4H, WILL PROVIDE 840 ML TOTAL VOLUME, 1512 KCALS, 68 G PROTEIN, 1210 ML FREE WATER, MEETING 84% ESTIMATED CALORIE NEEDS AND 100% ESTIMATED PROTEIN NEEDS 3. MONITOR LAB VALUES. 4. RD TO FOLLOW-UP 2-3 DAYS, HIGH RISK REVIEWED BY CASA PADILLA RD
--- NOTE | 2022-10-05 16:30 | NUR ---
Dialysis being done at bedside.
--- NOTE | 2022-10-05 18:06 | NUR ---
Covid PCR collected and sent to lab
--- NOTE | 2022-10-05 19:15 | NUR ---
Dialysis complete, 1L output.
--- NOTE | 2022-10-05 19:25 | NUR ---
Endorsed plan of care to RN. Informed regarding PCR re-collection.
[2022-10-05] MEDS ORDERED: SODIUM BICARBONATE 8.4% PFS 50 MEQ/50 ML SYR IVP ONE (20:17)
[2022-10-05 20:30] LABS: ALBUMIN 2.2 g/dL (3.4-5.0); ANION GAP 15.1 (8-16); CARBON DIOXIDE 25.9 mmol/L (21-32); TOTAL BILIRUBIN 2.5 mg/dL (0.0-1.0)
[2022-10-05 20:34] LABS: CREATININE 6.6 mg/dL (0.6-1.3)
[2022-10-05] MEDS: SODIUM BICARBONATE 8.4% 50 MEQ in NACL 0.45% 1,000 ML IV SCH (20:44)
[2022-10-06] VITALS (31 sets, daily range): BP systolic 96–152; BP diastolic 42–84
[2022-10-06] MEDS: AMPICILLIN/SULBACTAM 1.5 GM in NACL 0.9% 50 ML IV SCH ×2 (00:45→12:35)
[2022-10-06] MEDS: HYDROCORTISONE NA SUCC 100 MG/2 ML VIAL IV SCH ×4 (00:45→17:13)
[2022-10-06] MEDS ORDERED: SODIUM BICARBONATE 8.4% PFS 50 MEQ/50 ML SYR IVP ONE (02:33)
[2022-10-06] MEDS: SODIUM BICARBONATE 8.4% 50 MEQ in NACL 0.45% 1,000 ML IV SCH ×2 (03:36→13:43)
[2022-10-06 06:07] LABS: HEMATOCRIT 32.9 % (36-52); HEMOGLOBIN 10.4 g/dL (12.0-18.0); MEAN CORPUSCULAR HEMOGLOBIN 25 pg (27-31); MEAN CORPUSCULAR HGB CONC 32 g/dL (33-37); MEAN CORPUSCULAR VOLUME 79.1 fL (80-94); PLATELET COUNT (AUTO) 152 K/uL (140-450); RED BLOOD CELL COUNT(AUTO) 4.16 MIL/uL (4.20-6.10); RED CELL DISTRIBUTION WIDTH 15.4 % (11.6-13.7); WHITE BLOOD COUNT (AUTO) 19.2 K/uL (4.8-10.8)
[2022-10-06 06:24] LABS: ANION GAP 23.3 (8-16); CARBON DIOXIDE 24.4 mmol/L (21-32); POTASSIUM 4.7 mmol/L (3.5-5.1)
[2022-10-06 06:43] LABS: CREATININE 7.1 mg/dL (0.6-1.3)
[2022-10-06 07:06] LABS: LYMPHOCYTES % (MANUAL) 3 % (20-46); MONOCYTES % (MANUAL) 3 % (5-12)
--- NOTE | 2022-10-06 07:17 | NUR ---
PT ENDORSED TO WILLY BERRIOS. LEVOPHED X 4 WAS LEFT AT 2 AND AND VASOPRESSIN ON AT 0.03. UNABLE TO FULLY TURN DUE TO LIMITED SIZE BUT ROM COMPLETED ON EXTREMITIES TO BEST OF ABILITY AND WIPED DOWN WITH BATH WIPES. AND PT IS PENDING POSSIBLE TO TRANSFER OUT FOR FASCIOTOMY. VERSED IS ON AT 7. PT WAS AFEBRILE OVER NIGHT.
--- NOTE | 2022-10-06 07:30 | NUR ---
Recieved report from off going nurse, patient is resting in bed, no apparent distress noted, tolerating mechanical ventilation well. VSS on telemetry with Levophed infusing at 4.8mcg/kg/min for BP support. Patient has soft wrist restraints in place, with good circulation checks note. BLE pulses present by doppler x4. OGT clamped, placement verified by auscultation. Patient is sedated to Rass -3/-4 with Fentanyl 0.68mcg/kg/h and Versed 7mg/h. No apparent distress noted.
[2022-10-06] MEDS: MIDAZOLAM MDV 50 MG in NACL 0.9% 40 ML IV PRN ×3 (08:06→22:57)
[2022-10-06] MEDS: CEFEPIME 1,000 MG in DEXTROSE 5% 50 ML IV SCH ×2 (08:39→21:22)
[2022-10-06] MEDS: PANTOPRAZOLE 40 MG INJ VIAL IVP SCH (08:40)
--- NOTE | 2022-10-06 12:47 | NUR ---
RN RECEIVED A CALL FROM IRVING AT [facility] ([phone]) ASKING FOR F/U ON PATIENT TRANSFER FOR CRRT, STATES NO ICU BEDS AT [facility] AT THIS TIME.
--- NOTE | 2022-10-06 15:15 | NUR ---
REPOSITION ,COMPLETED BED BATH ,SKIN CARE ORAL CARE AND CATHETERS CARE GIVE GENERAL SKIN IS DRY AND WARM TO TOUCH.LEFT LEG REMAIN HAVING CELLULITIS AND GETTING VERY LARGE TO BE DOUBLE SIZE OF NORMAL REG SIZE. THE PEDAL PULSE IS PRESENT BY DROPPER.
--- NOTE | 2022-10-06 15:49 | NUR ---
[id number] HD RN at bedside, HD in progress, VSS, gtt rates unchanged, patient tolerated HD with 1.6L fluid removal well. Patient turned and bathed with the assistance of 6 people and RT at bedside. Patient tolerated activity well.
--- NOTE | 2022-10-06 19:20 | NUR ---
RECEIVED REPORT FROM WILLY BERRIOS FOR CONTINUITY OF CARE FOR THIS PT.PT IS LYING SUPINE WITH HIS EYES CLOSED HE'S ORALLY INTUBATED WITH A OGT IN PLACE, AND HE'S NPO PT IS ON THE VENTILATOR WITH SETTING OF AC/PRVC FI02 @ 40%, TV 550, PEEP 5 AND A RATE OF 30. HE'S TOLERATING THE SETTING WELL. HE'S SEDATED ON FENTANYL AND VERSED.AND IS MAINTAINED AT A RASS-3. HIS IV ACCESS IS LAC 20 GAUGE PERIPHERAL IV AND A RIGHT INTERNAL JUGULAR TRIPLE LUMEN. HE IS RECEIVING SODIUM BICARB IN .45 NORMAL SALINE @ 125CC/HOUR. PT IS ON LEVOPHED FOR HYPOTENSION . HE HAS GENERALIZED EDEMA NON -PITTING PT ALSO HAS A PAM CATH IN THE RIGHT GROIN AREA FOR DIALYSIS. HE WAS DIALYZED O2/ WITH A LOSS OF 1.6 LITERS REMOVED. PT IS IN SOFT WRIST RESTRAINTS.. NO INJURIES TO DATE. ABD IS VERY DISTENDED WITH HYPOACTIVE BOWEL SOUNDS. HE HAS A PAINTING CATH IN PLACE WITH A SMALL AMT OF YELLOW URINE DRAINING.
--- NOTE | 2022-10-06 19:22 | NUR ---
Patient resting in bed, no apparent distress, tolerating mechanical ventilation well. Patient remains restrained, gtt rates unchanged. Report given to oncoming nurseRidge
[2022-10-06] MEDS: fentaNYL citrate - 50mL vial 2.5 MG in NACL 0.9% 200 ML IV PRN (20:25)
[2022-10-07] VITALS (32 sets, daily range): BP systolic 102–131; BP diastolic 52–77
--- NOTE | 2022-10-07 | NUR ---
ORAL CARE GIVEN SCANT AMT OF ORAL SECRETIONS.
[2022-10-07] MEDS: AMPICILLIN/SULBACTAM 1.5 GM in NACL 0.9% 50 ML IV SCH ×2 (00:26→12:26)
[2022-10-07] MEDS: HYDROCORTISONE NA SUCC 100 MG/2 ML VIAL IV SCH ×4 (00:26→17:59)
[2022-10-07 06:16] LABS: HEMATOCRIT 32.6 % (36-52); HEMOGLOBIN 10.6 g/dL (12.0-18.0); MEAN CORPUSCULAR HEMOGLOBIN 26 pg (27-31); MEAN CORPUSCULAR HGB CONC 33 g/dL (33-37); MEAN CORPUSCULAR VOLUME 78.7 fL (80-94); PLATELET COUNT (AUTO) 154 K/uL (140-450); RED BLOOD CELL COUNT(AUTO) 4.14 MIL/uL (4.20-6.10); RED CELL DISTRIBUTION WIDTH 15.6 % (11.6-13.7)
--- NOTE | 2022-10-07 06:23 | NUR ---
PT LEFT FOOT IS EXTREMELY SWOLLEN AND RED. THE PULES IS PALPABLE BUT WEAKER THAN THE RIGHT FOOT PULSE.
--- NOTE | 2022-10-07 06:25 | NUR ---
PT'S HEART RATE DROPPED TO 48 BUT WASN'T SUSTAINED, BUT THE PROPOFOL WAS DECREASED BACK TO 55MCG.
[2022-10-07 06:42] LABS: ANION GAP 16.5 (8-16); CARBON DIOXIDE 25.8 mmol/L (21-32); POTASSIUM 4.3 mmol/L (3.5-5.1)
[2022-10-07 06:45] LABS: CREATININE 7.4 mg/dL (0.6-1.3)
--- NOTE | 2022-10-07 07:15 | NUR ---
RECEIVED REPORT FROM FISHERIES DIRECTOR JOAN BERRIOS. PT IS SEDATED. ETT TO VENT. AC PRVC 40%, VT 550, RATE 30, PEEP 6. RT IJ TRIPLE LUMEN, RUNNING LEVO @ 2.848 MCG/MIN, VERSED @ 7 MG/H, FENTANYL @ 0.682 MCG/KG/H. LT AC 20G, RUNNING 1/2 NS @ 5 MLS/H. HD CATHETER TO RT GROIN. PAINTING IN PLACE TO GRAVITY, URINE LIGHT KVNG. LLE EXTREME SWELLING. OGT CLAMPED. NPO EXCEPT MEDS. HOB ELEVATED, BED TO LOWEST POSITION, CALL LIGHT WITHIN REACH, WILL CONTINUE TO MONITOR.
[2022-10-07] MEDS ORDERED: MIDAZOLAM MDV 50 MG/10 ML VIAL IV ONE (07:17)
[2022-10-07 07:18] LABS: BASOPHILS % (MANUAL) 0 % (0-2); EOSINOPHILS % (MANUAL) 2 % (0-4); LYMPHOCYTES % (MANUAL) 11 % (20-46); MONOCYTES % (MANUAL) 8 % (5-12)
[2022-10-07] MEDS: CEFEPIME 1,000 MG in DEXTROSE 5% 50 ML IV SCH ×2 (08:34→21:30)
[2022-10-07] MEDS: PANTOPRAZOLE 40 MG INJ VIAL IVP SCH (08:34)
--- NOTE | 2022-10-07 10:25 | NUR ---
DR RODRIGUEZ ROUNDING AT BESIDE. UPDATED PT INFORMATION.
--- NOTE | 2022-10-07 11:00 | NUR ---
FAMILY/COUSIN AT BEDSIDE. UPDATED PT INFORMATION.
--- NOTE | 2022-10-07 11:15 | NUR ---
DR YEE ROUNDING AT BEDSIDE. UPDATED PT INFORMATION.
--- NOTE | 2022-10-07 14:26 | NUR ---
YASH BARKSDALE CALLED FOR TUBE FEEDING RECOMMENDATION SAID IT WAS OKAY PER RN. RD CALCULATED TUBE FEEDING FORMULA AND LEFT MESSAGE WITH YASH SEVILLA. RECOMMENDED NEPRO WITH A GOAL RATE OF 50 ML/HR, STARTING AT 10 ML/HR AND INCREASING BY 10 ML Q4H UNTIL GOAL RATE IS REACHED; FWF 150 ML Q4H OR PER . RN ACKNOWLEDGED.
[2022-10-07] MEDS: fentaNYL citrate - 50mL vial 2.5 MG in NACL 0.9% 200 ML IV PRN (15:00)
--- NOTE | 2022-10-07 17:15 | NUR ---
DR SHAW ROUNDING AT BEDSIDE. UPDATED PT INFORMATION.
[2022-10-07] MEDS: MIDAZOLAM MDV 50 MG in NACL 0.9% 40 ML IV PRN (18:41)
--- NOTE | 2022-10-07 19:15 | NUR ---
ENDORSED TO BACK UP WORKER EZEQUIEL RN FOR CONTINUITY OF CARE. ALL QUESTION ANSWERED.
--- NOTE | 2022-10-07 19:50 | NUR ---
PEEP TITRATED TO +5. PT MILEY WELL
[2022-10-08] VITALS (25 sets, daily range): BP systolic 116–145; BP diastolic 65–101
[2022-10-08 05:54] LABS: BASOPHILS % (AUTO) 0.2 % (0.0-2.0); EOSINOPHILS # (AUTO) 0.5 K/uL (0-0.4); EOSINOPHILS % (AUTO) 2.4 % (0.0-4.0); HEMATOCRIT 31.9 % (36-52); HEMOGLOBIN 10.3 g/dL (12.0-18.0); LYMPHOCYTES # (AUTO) 1.2 K/uL (2.0-11.5); LYMPHOCYTES % (AUTO) 5.8 % (20.5-51.1); MEAN CORPUSCULAR HEMOGLOBIN 26 pg (27-31); MEAN CORPUSCULAR HGB CONC 32 g/dL (33-37); MEAN CORPUSCULAR VOLUME 78.9 fL (80-94); MONOCYTES # (AUTO) 0.3 K/uL (0.8-1.0); MONOCYTES % (AUTO) 1.6 % (1.7-9.3); NEUTROPHILS # (AUTO) 18.3 K/uL (1.8-7.7); PLATELET COUNT (AUTO) 181 K/uL (140-450); RED BLOOD CELL COUNT(AUTO) 4.04 MIL/uL (4.20-6.10); RED CELL DISTRIBUTION WIDTH 15.7 % (11.6-13.7); WHITE BLOOD COUNT (AUTO) 20.3 K/uL (4.8-10.8)
[2022-10-08] MEDS: HYDROCORTISONE NA SUCC 100 MG/2 ML VIAL IV SCH ×5 (05:59→23:42)
[2022-10-08] MEDS: MIDAZOLAM MDV 50 MG in NACL 0.9% 40 ML IV PRN ×2 (06:00→12:07)
[2022-10-08] MEDS: fentaNYL citrate - 50mL vial 2.5 MG in NACL 0.9% 200 ML IV PRN (06:02)
[2022-10-08 06:18] LABS: ANION GAP 17.4 (8-16); CARBON DIOXIDE 27.3 mmol/L (21-32); POTASSIUM 4.7 mmol/L (3.5-5.1)
[2022-10-08 06:20] LABS: CREATININE 8.1 mg/dL (0.6-1.3)
--- NOTE | 2022-10-08 07:40 | NUR ---
Received report from shift foreman, family is insisting to be transferred to [facility] hospital. Pt. is asleep, on vent, tach midline and patent. In stable condition. Vasopressors on hold. VS stable. OG-tube intact and patent. F/C intact and patent. Will cont. to monitor.
[2022-10-08] MEDS: CEFEPIME 1,000 MG in DEXTROSE 5% 50 ML IV SCH ×2 (08:40→22:03)
[2022-10-08] MEDS: PANTOPRAZOLE 40 MG INJ VIAL IVP SCH (08:43)
--- NOTE | 2022-10-08 09:10 | NUR ---
RP at the bedside, insisted to transfer pt. to [facility]. PMD made aware.
--- NOTE | 2022-10-08 11:12 | NUR ---
PT. WITH LISBET TO ICU INTUBATED WITH LOW TAYLOR SCALE TO VERY HIGH RISK, BLE CELLULITIS WITH LYMPHEDEMA. RLE SKIN ERYTHEMA, +1 EDEMA, DRY NO OPEN WOUND. LLE NO ERYTHEMA, WEEPING BLISTERING SKIN WITH +3 EDEMA. POC DISCUSSED WITH PRIMARY RN CORINNA. CONTINUE TO FOLLOW PRESSURE INJURY PREVENTION INTERVENTIONS. -CLEANSE BLE WITH NS, PAT DRY, APPLY XEROFORM DRESSING AND COVER WITH ABSORBENT PAD DAILY AND PRN IF SOILING -APPLY FOAM DRESSING TO SACRALCOCCYX, ELBOWS AND HEELS PREVENTION, PLEASE OFFLOAD SACRALCOCCYX AREA -PRESSURE REDISTRIBUTION SURFACE THERAPY HILL ROM EXCEL BARIATRIC BED /MATTRESS -POSITIONING: TURN AND REPOSITION PATIENT Q 2H OR SOONER USE PILLOWS TO KEEP BONY PROMINENCES FROM DIRECT CONTACT WITH SURFACES USE REPOSITIONING WEDGES TO PROVIDE 30-DEGREE ANGLE FOR SIDE LYING POSITIONS OFFLOADING OR FOAM DRESSING TO ALL TUBING TO PREVENT MEDICAL DEVICES RELATED PRESSURE INJURY -RE-EVALUATING AND MANAGING INCONTINENCE MONITOR SKIN CONDITION DURING POSITION CHANGE DO NOT MASSAGE REDNESS, BONY PROMINENCES FREQUENT ZEB-CARE AND PROVIDE BARRIER CREAMS PRN IF SOILING MOISTURE CONTROL BY OFFER BED OZUNA/URINAL /ABSORBENT PAD TO WICK AND HOLD MOISTURE KEEP SKIN DRY AND PROTECT FROM FRICTION -MANAGE FRICTION/SHEAR/MOBILITY KEEP HOB AT THE LOWEST LEVEL OF ELEVATION NO MORE THAN 30 DEGREE UNLESS OTHERWISE CONTRAINDICATED USE LIFT SHEET OR TRANSFER DEVICE TO MOVE PATIENT AND PREVENT LATERAL SHEER. PROTECT HEELS, ELBOWS BONY PROMINENCES WITH SKIN BERRIES OR FOAM DRESSING IF EXPOSED TO FRICTION OFFLOAD BILATERAL HEELS BY PLACING PILLOWS UNDER CALVES AT ALL TIMES, UNLESS OTHERWISE CONTRAINDICATED -NUTRITION: PLEASE FOLLOW RD RECOMMENDATIONS AND OFFER NUTRITION SUPPLEMENTS IF ORDERED. PLEASE CONTACT WOUND CARE NURSE FOR ANY QUESTION AND CHANGE OF WOUND CONDITION.
[2022-10-08] MEDS: AMPICILLIN/SULBACTAM 1.5 GM in NACL 0.9% 50 ML IV SCH ×4 (12:09→23:42)
[2022-10-08] MEDS: NON ADHERENT DRESSING TP SCH (13:38)
--- NOTE | 2022-10-08 14:26 | NUR ---
10/08/22 RD FOLLOW UP COMPLETED PLEASE REFER TO NUTRITION ASSESSMENT UNDER CARE ACTIVITY FOR ESTIMATED NUTRITIONAL NEEDS. 1. WHEN MEDICALLY APPROPRIATE, RECOMMEND INCREASING TUBE FEEDING RATE TO NEPRO @50 ML/HR, FWF 100 ML Q6H - WILL PROVIDE 1200 ML TOTAL VOLUME, 2160 KCALS, 97 G PROTEIN, AND 1272 ML FREE WATER, MEETING 92% ESTIMATED CALORIE NEEDS AND 100% ESTIMATED PROTEIN NEEDS, ADEQUATE 2. MONITOR RESIDUALS AND LAB VALUES. 3. RD TO FOLLOW-UP 2-3 DAYS, HIGH RISK REVIEWED BY CASA PADILLA RD
[2022-10-08] MEDS: MIDAZOLAM MDV 100 MG in NACL 0.9% 80 ML IV PRN ×2 (18:14→23:45)
--- NOTE | 2022-10-08 18:34 | NUR ---
pt. on dialysis, removed 1.5L
--- NOTE | 2022-10-08 19:35 | NUR ---
Report received fromSKYE RN at the bedside, met pt eyes open and follows verbal command. Moves all extremities but generalized weakness noted, ETT to vent tolerating well O2 sat 100% diminished lungs sounds oral care done, suction via ETT for airway clearance, OGT auscultated, for placement verification, no residual noted, vitals signs stable afebrile SR on the monitor generalized edema, pt on Bariatric bed for comfort also to prevent skin breakdown, restraints applied for safety as he have attempted to pul out the ETT, ongoing support and close monitoring for safety. Will continue to monitor and treat for safety.
--- NOTE | 2022-10-08 20:30 | NUR ---
Family were here pt's father friend and sibling updates education on care, they verbalized understanding, emotional support and encouraged to verbalized their concerns. They were grateful for the care pt is receiving in this facility.
[2022-10-08] MEDS: LORazepam 2 MG/ML VIAL IVP PRN (23:41)
[2022-10-09] VITALS (26 sets, daily range): BP systolic 92–144; BP diastolic 43–89
[2022-10-09] MEDS: fentaNYL citrate - 50mL vial 2.5 MG in NACL 0.9% 200 ML IV PRN ×2 (00:33→13:43)
[2022-10-09 05:33] LABS: BASOPHILS # (AUTO) 0.1 K/uL (0.00-0.22); BASOPHILS % (AUTO) 0.2 % (0.0-2.0); EOSINOPHILS # (AUTO) 0.6 K/uL (0-0.4); EOSINOPHILS % (AUTO) 1.8 % (0.0-4.0); HEMATOCRIT 34.6 % (36-52); HEMOGLOBIN 11.2 g/dL (12.0-18.0); LYMPHOCYTES # (AUTO) 2.6 K/uL (2.0-11.5); LYMPHOCYTES % (AUTO) 7.9 % (20.5-51.1); MEAN CORPUSCULAR HEMOGLOBIN 25 pg (27-31); MEAN CORPUSCULAR HGB CONC 32 g/dL (33-37); MEAN CORPUSCULAR VOLUME 78.3 fL (80-94); MONOCYTES # (AUTO) 0.7 K/uL (0.8-1.0); NEUTROPHILS # (AUTO) 29.1 K/uL (1.8-7.7); NEUTROPHILS % (AUTO) 88.1 % (42.2-75.2); PLATELET COUNT (AUTO) 233 K/uL (140-450); RED BLOOD CELL COUNT(AUTO) 4.42 MIL/uL (4.20-6.10); RED CELL DISTRIBUTION WIDTH 15.8 % (11.6-13.7)
[2022-10-09] MEDS: HYDROCORTISONE NA SUCC 100 MG/2 ML VIAL IV SCH ×4 (06:19→23:59)
[2022-10-09 06:25] LABS: ANION GAP 17.5 (8-16); POTASSIUM 4.5 mmol/L (3.5-5.1)
--- NOTE | 2022-10-09 07:10 | NUR ---
Assumed pt care report received from Deepthi BERRIOS. Met pt fully sedated ongoing Fentanyl , Versed and Propofol drips tolerating well. ETT to ventilator FIO2 60% A/C PRVC diminished lungs sounds oral care and suctioned for airway clearance. OGT placement checked via auscultation also no residual from the tube feeding. Vitals signs stable afebrile with continue to monitor and treat as per care plan. Addendum: 10/09/22 at 2253 by Agency 01 YASH BERRIOS timed changed
[2022-10-09 07:19] LABS: CREATININE 7.8 mg/dL (0.6-1.3)
--- NOTE | 2022-10-09 07:20 | NUR ---
Change of shift report given to CORINNA BERRIOS, for continuity of care, updates at the bedside pt restful as at this time vitals signs stable and no changes in care plan
[2022-10-09] MEDS: PANTOPRAZOLE 40 MG INJ VIAL IVP SCH (08:27)
[2022-10-09] MEDS: CEFEPIME 2,000 MG in DEXTROSE 5% 100 ML IV SCH (08:28)
[2022-10-09] MEDS ORDERED: VANCOMYCIN PER PHARMACY MC PRN (08:55)
[2022-10-09] MEDS: MIDAZOLAM MDV 100 MG in NACL 0.9% 80 ML IV PRN (09:06)
[2022-10-09] MEDS: LORazepam 2 MG/ML VIAL IVP PRN (09:54)
--- NOTE | 2022-10-09 10:45 | NUR ---
OVERRIDE HOLDAL 5MG DUE TO PT AGITATION AND RESTLESSNESS.
[2022-10-09] MEDS ORDERED: HALOPERIDOL IM 5 MG/ML VIAL ONE (10:46)
[2022-10-09] MEDS ORDERED: HALOPERIDOL IM 5 MG/ML VIAL IM SCH (11:00)
--- NOTE | 2022-10-09 11:25 | NUR ---
PT FIO2 INCREASED TO 50% FROM 32% DUE TO DESATING HAPPENING WHILE PT WAS RECEIVING DIALYSIS. WILL MONITOR AND TITRATE DOWN PT AFTER DIALYSIS. NO DISTRESS NOTED RN AWARE OF CHANGE
[2022-10-09] MEDS: PROPOFOL 1000 MG/100 ML PREMIX 100 ML IV PRN ×2 (11:40→20:18)
[2022-10-09] MEDS: AMPICILLIN/SULBACTAM 1.5 GM in NACL 0.9% 50 ML IV SCH (12:00)
[2022-10-09] MEDS ORDERED: fentaNYL citrate 1 MG in NACL 0.9% 80 ML IV PRN (12:45)
[2022-10-09] MEDS ORDERED: CEFEPIME IV SCH (13:00)
[2022-10-09] MEDS ORDERED: DEXTROSE 5% IV SCH (13:00)
[2022-10-09] MEDS ORDERED: fentaNYL citrate - 50mL vial 2.5 MG in NACL 0.9% 200 ML IV PRN ×2 (13:10→13:40)
--- NOTE | 2022-10-09 13:25 | NUR ---
Dialysis done and removed 2.6L fluid
[2022-10-09] MEDS: NON ADHERENT DRESSING TP SCH (13:29)
[2022-10-09] MEDS ORDERED: VANCOMYCIN 1,000 MG in DEXTROSE 5% 250 ML IV SCH (16:00)
[2022-10-09 18:44] LABS: APPEARANCE,URINE CLEAR (CLEAR); BILIRUBIN,URINE NEGATIVE (NEGATIVE); BLOOD, URINE 2+ (NEGATIVE); COLOR,URINE YELLOW (YELLOW); LEUKOCYTE ESTERASE ,URINE TRACE (NEGATIVE); NITRITE, URINE NEGATIVE (NEGATIVE); PH,URINE 5.5 (5.0-9.0); UGLUCOSE NEGATIVE (NEGATIVE)
--- NOTE | 2022-10-09 19:45 | NUR ---
Assumed pt care report received from Deepthi BERRIOS. Met pt fully sedated ongoing Fentanyl , Versed and Propofol drips tolerating well. ETT to ventilator FIO2 60% A/C PRVC diminished lungs sounds oral care and suctioned for airway clearance. OGT placement checked via auscultation also no residual from the tube feeding. Vitals signs stable afebrile with continue to monitor and treat as per care plan
[2022-10-09] MEDS: QUEtiapine FUMARATE 25 MG TAB PO SCH (20:18)
[2022-10-10] VITALS (30 sets, daily range): BP systolic 104–134; BP diastolic 67–78
[2022-10-10] MEDS: AMPICILLIN/SULBACTAM 1.5 GM in NACL 0.9% 50 ML IV SCH ×2 (00:01→12:00)
[2022-10-10] MEDS: PROPOFOL 1000 MG/100 ML PREMIX 100 ML IV PRN ×7 (00:04→21:18)
[2022-10-10] MEDS: fentaNYL citrate - 50mL vial 2.5 MG in NACL 0.9% 200 ML IV PRN ×2 (00:07→15:38)
[2022-10-10] MEDS: MIDAZOLAM MDV 100 MG in NACL 0.9% 80 ML IV PRN ×2 (00:08→08:00)
[2022-10-10 05:51] LABS: BASOPHILS # (AUTO) 0.1 K/uL (0.00-0.22); BASOPHILS % (AUTO) 0.3 % (0.0-2.0); EOSINOPHILS # (AUTO) 0.7 K/uL (0-0.4); EOSINOPHILS % (AUTO) 2.2 % (0.0-4.0); HEMATOCRIT 32.7 % (36-52); HEMOGLOBIN 10.5 g/dL (12.0-18.0); LYMPHOCYTES # (AUTO) 1.1 K/uL (2.0-11.5); LYMPHOCYTES % (AUTO) 3.4 % (20.5-51.1); MEAN CORPUSCULAR HEMOGLOBIN 25 pg (27-31); MEAN CORPUSCULAR HGB CONC 32 g/dL (33-37); MEAN CORPUSCULAR VOLUME 78.6 fL (80-94); MONOCYTES # (AUTO) 0.8 K/uL (0.8-1.0); MONOCYTES % (AUTO) 2.4 % (1.7-9.3); NEUTROPHILS # (AUTO) 31.1 K/uL (1.8-7.7); NEUTROPHILS % (AUTO) 91.7 % (42.2-75.2); PLATELET COUNT (AUTO) 247 K/uL (140-450); RED BLOOD CELL COUNT(AUTO) 4.15 MIL/uL (4.20-6.10)
[2022-10-10] MEDS: HYDROCORTISONE NA SUCC 100 MG/2 ML VIAL IV SCH ×3 (06:06→18:19)
[2022-10-10 06:10] LABS: WHITE BLOOD COUNT (AUTO) 33.9 K/uL (4.8-10.8)
[2022-10-10 06:12] LABS: ANION GAP 19.4 (8-16); CARBON DIOXIDE 25.5 mmol/L (21-32); POTASSIUM 4.9 mmol/L (3.5-5.1)
[2022-10-10 06:38] LABS: CREATININE 7.3 mg/dL (0.6-1.3)
--- NOTE | 2022-10-10 07:18 | NUR ---
Critical lab value results sent to Dr Her infectious disease WBC was [address] Krish Calvert notified of BUN 119 and Creatinine 7.3
--- NOTE | 2022-10-10 07:30 | NUR ---
RECEIVED REPORT FROM MANAGER PEDIATRIC RN. PT IS SEDATED. ETT TO VENT. AC PRVC 60%, VT 550, RATE 30, PEEP 5. RT IJ TRIPLE LUMEN, VERSED @ 15 MG/H, FENTANYL @ 0.809 MCG/KG/H, PROPOFOL @ 20MCG/KG/MIN. LT AC 20G, RUNNING 1/2 NS @ 5 MLS/H. HD CATHETER TO RT GROIN. PAINTING IN PLACE TO GRAVITY, URINE CLOUDY YELLOW WITH SEDIMENTS. LLE EXTREME SWELLING. OGT TO TUBE FEEDING. HOB ELEVATED, BED TO LOWEST POSITION, CALL LIGHT WITHIN REACH, WILL CONTINUE TO MONITOR.
--- NOTE | 2022-10-10 07:32 | NUR ---
Bedside report given to Zachery RN for continuity of care went over all the drips Fentanyl, Versed and Propofol, pt's condition on admission, response to tx care plan and ventilator settings as at this time pt's vitals signs stable no sign of distress.
[2022-10-10] MEDS: QUEtiapine FUMARATE 25 MG TAB PO SCH ×2 (09:00→21:00)
[2022-10-10] MEDS: PANTOPRAZOLE 40 MG INJ VIAL IVP SCH (09:00)
[2022-10-10] MEDS: CEFEPIME 2,000 MG in DEXTROSE 5% 100 ML IV SCH (09:00)
--- NOTE | 2022-10-10 09:00 | NUR ---
NOTIFIED DR GOLDEN ABOUT REPLACING HD CATH. DR GOLDEN WILL COME SEE PT
[2022-10-10] MEDS: NON ADHERENT DRESSING TP SCH (13:20)
--- NOTE | 2022-10-10 15:24 | NUR ---
WOUN CARE AND ZEB CARE DONE. TURNED AND REPOSITIONED
--- NOTE | 2022-10-10 18:30 | NUR ---
REPORT GIVEN TO GINA GARVIN RN IN [facility] [phone]. RAPID COVID TEST RESULT FAXED [phone]. P/U TIME
--- NOTE | 2022-10-10 21:19 | NUR ---
PT WAS TRANSFERED AND ENDORSED TO [facility] AT 2109 [place] [facility]SFERR[facility] [place] [facility] WITHOUT COMPLICATION. VENT MANAGED BY [facility] RN. TUBE FEEDING DISCONNECTED PRIOR TO TRANSFER AT 1929.
== END 2022-10-10 21:10 | disposition home or self-care (01) | DRG 720 ==
LOC: MED 11:38 → MTU 16:33 → MMU 21:08 → MIC 10-03 06:05
PROVIDERS: ADMIT Student in an Organized Health Care Education/Training Program; ATTEND Student in an Organized Health Care Education/Training Program
PROC: 5A1955Z Respiratory Ventilation, Greater than 96 Consecutive Hours (ICD-10-PCS; principal; 2022-10-04)
PROC: 0BH17EZ Insertion of Endotracheal Airway into Trachea, Via Natural or Artificial Opening (ICD-10-PCS; 2022-10-04)
PROC: 02HV33Z Insertion of Infusion Device into Superior Vena Cava, Percutaneous Approach (ICD-10-PCS; 2022-10-04)
PROC: 05HM33Z Insertion of Infusion Device into Right Internal Jugular Vein, Percutaneous Approach (ICD-10-PCS; 2022-10-04)
PROC: B548ZZA Ultrasonography of Superior Vena Cava, Guidance (ICD-10-PCS; 2022-10-04)
PROC: 5A1D70Z Performance of Urinary Filtration, Intermittent, Less than 6 Hours Per Day (ICD-10-PCS; 2022-10-05)
PROC: 06HM33Z Insertion of Infusion Device into Right Femoral Vein, Percutaneous Approach (ICD-10-PCS; 2022-10-05)
PROC: B54BZZA Ultrasonography of Right Lower Extremity Veins, Guidance (ICD-10-PCS; 2022-10-05)
PROC: 5A1D70Z Performance of Urinary Filtration, Intermittent, Less than 6 Hours Per Day (ICD-10-PCS; 2022-10-06)
PROC: 5A1D70Z Performance of Urinary Filtration, Intermittent, Less than 6 Hours Per Day (ICD-10-PCS; 2022-10-07)
PROC: 5A1D70Z Performance of Urinary Filtration, Intermittent, Less than 6 Hours Per Day (ICD-10-PCS; 2022-10-09)
DX: A41.9 Sepsis, unspecified organism (principal); N17.0 Acute kidney failure with tubular necrosis; J96.01 Acute respiratory failure with hypoxia; R65.21 Severe sepsis with septic shock; J18.9 Pneumonia, unspecified organism; I42.9 Cardiomyopathy, unspecified; T79.A22A Traumatic compartment syndrome of left lower extremity, initial encounter; Z68.45 Body mass index [BMI] 70 or greater, adult; E86.0 Dehydration; R56.9 Unspecified convulsions; L03.116 Cellulitis of left lower limb; E80.6 Other disorders of bilirubin metabolism; E66.01 Morbid (severe) obesity due to excess calories; Z20.822 Contact with and (suspected) exposure to COVID-19; B95.1 Streptococcus, group B, as the cause of diseases classified elsewhere; E11.9 Type 2 diabetes mellitus without complications; I10 Essential (primary) hypertension; E78.5 Hyperlipidemia, unspecified; I89.0 Lymphedema, not elsewhere classified; F15.10 Other stimulant abuse, uncomplicated; N39.0 Urinary tract infection, site not specified; I87.8 Other specified disorders of veins; Y95 Nosocomial condition; R33.9 Retention of urine, unspecified
CPT/HCPCS: 31500; 36415; 36600; 71045; 73590; 73620; 76881; 80048; 80053; 80202; 80305; 81001; 82150; 82330; 82803; 83036; 83605; 83690; 83735; 83880; 84100; 84484; 85025; 85610; 85730; 87040; 87070; 87081; 87086; 87186; 87205; 87635-QW; 89220; 93005; 93971; 94003; 94640; 94664; 96374; 97163-GP; 97530; 99291; C9113; J0171; J0295; J0610; J0692; J1630; J1644; J1720; J1815; J2060; J2250; J2270; J2370; J2543; J2704; J3010; J3370; J3372; J3490; J7030; J7060; J7613; Q0092

== ENCOUNTER 2022-10-22 14:30 | Inpatient (IN) | payer OTHER ==
[~2022-10-22] VITALS: Ht 180.3 cm; Wt 204.6 kg
--- NOTE | 2022-10-22 15:54 | NUR ---
@1211 RECEIVE REPORT FROM [facility] [place], MELY ([phone]), THAT 37YR. M. WILL TRANSFER TO ROOM 117 FOR EVELINE ON DIALYSIS W/ PERMCATH @R. CHEST. PATIENT HAS NKA, FULL CODE, W/O ISOLATION, TRANSFER OUT TO [facility] AT 09/01/2022 FOR HYPOTENSION, , L. LOWER EXTREMITY CELLULITIS, FEVER, W/ SEPTIC SHOCK AND INTUBATED THEREAFTER. PATIENT 'S EF=30-35%, MOBILITY OBESITY ON ANTIBIOTIC (PIV AT LAC 22G). PATIENT CURRENT ALERT X 4, MOST RECENT DIALYSIS IS 10/21/2022 AND 3.5 LITER REMOVED. PATIENT IS ON ROOM AIR, TEL. MONITOR SHOW TACHYCARDIA, ON REGULAR DIET WITH NO ACCUCHECK. CONTINENT, LAST BM IS 10/21/2022, UNABLE TO AMBULATE, NEED HELP TO STAND UP ON HIS FEET. L. LEG CELLULITIS OPEN TO AIR. WILL CONTINUE TO MONITOR. @1530 4 [facility] ACCOUNT REPRESENTATIVE BROUGHT PATIENT FROM [facility] TO [facility] ROOM 117. PATIENT ALERT, AWAKE WITH STABLE VITAL (T-P-R: 98.3-109-19, BP: 121/78, O2 SAT:99% IN ROOM AIR W/ NO ACUTE PAIN) TACHYCARDIA (RDM=[id number]) ON MONITOR. MRSA COLLECTED. WILL CONTINUE TO MONITOR.
[2022-10-22 16:02] VITALS: BP 121/78
[2022-10-22] MEDS ORDERED: DOCUSATE SOD/SENNA 50/8.6 MG 1 TAB PO PRN (16:55)
[2022-10-22] MEDS ORDERED: MAG SULF 2000 MG/WATER PREMIX 50 ML IV PRN (16:55)
[2022-10-22] MEDS ORDERED: POTASSIUM CHLORIDE 10 MEQ TABER PO PRN (16:55)
[2022-10-22] MEDS ORDERED: POLYETHYLENE GLYCOL 17 GM/PKT PO PRN (16:55)
[2022-10-22] MEDS ORDERED: ONDANSETRON 4 MG/2 ML VIAL IVP PRN (16:55)
[2022-10-22] MEDS ORDERED: ALBUMIN HUMAN 25% 50 ML IV PRN (16:55)
[2022-10-22] MEDS ORDERED: ACETAMINOPHEN EXTRA STRENGTH 500 MG TAB PO PRN (16:55)
[2022-10-22] MEDS ORDERED: NACL 0.9% 1,000 ML IV SCH (16:55)
[2022-10-22 19:31] LABS: BASOPHILS # (AUTO) 0.1 K/uL (0.00-0.22); BASOPHILS % (AUTO) 1.2 % (0.0-2.0); EOSINOPHILS # (AUTO) 0.9 K/uL (0-0.4); EOSINOPHILS % (AUTO) 10.5 % (0.0-4.0); HEMATOCRIT 32.4 % (36-52); HEMOGLOBIN 10.7 g/dL (12.0-18.0); LYMPHOCYTES # (AUTO) 2.1 K/uL (2.0-11.5); LYMPHOCYTES % (AUTO) 25.3 % (20.5-51.1); MEAN CORPUSCULAR HEMOGLOBIN 26 pg (27-31); MEAN CORPUSCULAR HGB CONC 33 g/dL (33-37); MONOCYTES # (AUTO) 1.2 K/uL (0.8-1.0); MONOCYTES % (AUTO) 14.2 % (1.7-9.3); NEUTROPHILS # (AUTO) 4.1 K/uL (1.8-7.7); NEUTROPHILS % (AUTO) 48.8 % (42.2-75.2); PLATELET COUNT (AUTO) 296 K/uL (140-450); WHITE BLOOD COUNT (AUTO) 8.4 K/uL (4.8-10.8)
--- NOTE | 2022-10-22 19:44 | NUR ---
ENDORSE PATIENT IN STABLE CONDITION WHILE NS INFUSING VIA LAC PIV AT 50ML/HR.
--- NOTE | 2022-10-22 19:45 | NUR ---
RECEIVED PT IN BED AWAKE,ALERT AND ORIENTED X 4. FAMILY MEMBERS AT THE BEDSIDE. DENIES PAIN AT THIS TIME. DENIES SHORTNESS OF BREATH. SKIN WARM AND DRY TO TOUCH. STARTED IV IN THE LEFT AC GAUGE 20, PREVIOUS IV NOT FLUSHING, REMOVED WITH INTACT CANNULA. SAFETY PRECAUTIONS IN PLACE, CALL LIGHT IN REACH.
[2022-10-22 19:47] LABS: PROTHROMBIN TIME 12.1 secs (10.8-13.4)
[2022-10-22 19:56] LABS: ANION GAP 16.3 (8-16); POTASSIUM 4.3 mmol/L (3.5-5.1)
[2022-10-22 20:00] VITALS: BP 102/72
[2022-10-22 20:07] LABS: CREATININE 8.2 mg/dL (0.6-1.3)
--- NOTE | 2022-10-22 20:08 | NUR ---
LAB RESULT RELAYED TO DR. FRYE BUN-62 CREA-8.2. NEW ORDER FOR HEMODIALYSIS IN AM. WASH WORKER TO CALL HD RN.
--- NOTE | 2022-10-22 20:15 | NUR ---
PT HAD A BOWEL MOVEMENT, CLEANED PT. MADE COMFORTABLE IN BED. PT APPRECIATIVE OF CARE.
[2022-10-22 20:18] LABS: AMYLASE 280 U/L (25-115); CHOL/HDL RATIO 5.9 (1-4.5); FREE T4 (FREE THYROXINE) 1.02 ng/dL (0.76-1.46); HDL CHOLESTEROL 34 mg/dL (40-60); LDL (CALC) 139 mg/dL (60-100); LIPASE 1908 U/L (73-393); MAGNESIUM 2.1 mg/dL (1.8-2.4); PHOSPHORUS 6.8 mg/dL (2.5-4.9); TRIGLYCERIDES 145 mg/dL (30-150)
[2022-10-22] MEDS: DOCUSATE SODIUM 100 MG GELCAP PO SCH (20:19)
[2022-10-22] MEDS: METOPROLOL 25 MG TAB PO SCH (20:20)
[2022-10-22] MEDS: HYDROcodone/APAP 7.5/325 MG 1 TAB PO PRN (23:54)
[2022-10-23] VITALS: BP 144/61
[2022-10-23 04:00] VITALS: BP 137/75
--- NOTE | 2022-10-23 06:42 | NUR ---
PATIENT IS ASLEEP. FATHER AT THE BEDSIDE. NO DISTRESS NOTED. ALL NEEDS ATTENDED TO. SAFETY PRECAUTIONS MAINTAINED DURING THE SHIFT, CALL LIGHT REMAINS WITHIN REACH.
--- NOTE | 2022-10-23 07:05 | NUR ---
receive the patient from the display decorator rn in rm 117 aox4 with admitting diagnosis of acute kidney injury with hemodialysisn, right leg cellulitis . will continue to monitor
[2022-10-23 07:08] LABS: BASOPHILS % (AUTO) 0.6 % (0.0-2.0); EOSINOPHILS # (AUTO) 0.9 K/uL (0-0.4); EOSINOPHILS % (AUTO) 11.2 % (0.0-4.0); HEMATOCRIT 31.8 % (36-52); HEMOGLOBIN 10.4 g/dL (12.0-18.0); LYMPHOCYTES # (AUTO) 2.2 K/uL (2.0-11.5); LYMPHOCYTES % (AUTO) 26.5 % (20.5-51.1); MEAN CORPUSCULAR HEMOGLOBIN 26 pg (27-31); MEAN CORPUSCULAR HGB CONC 33 g/dL (33-37); MEAN CORPUSCULAR VOLUME 79.6 fL (80-94); MONOCYTES # (AUTO) 1.2 K/uL (0.8-1.0); MONOCYTES % (AUTO) 14.5 % (1.7-9.3); NEUTROPHILS % (AUTO) 47.2 % (42.2-75.2); PLATELET COUNT (AUTO) 282 K/uL (140-450); RED BLOOD CELL COUNT(AUTO) 3.99 MIL/uL (4.20-6.10); RED CELL DISTRIBUTION WIDTH 16.2 % (11.6-13.7); WHITE BLOOD COUNT (AUTO) 8.4 K/uL (4.8-10.8)
[2022-10-23 07:13] LABS: ANION GAP 18.2 (8-16); CARBON DIOXIDE 20.9 mmol/L (21-32); POTASSIUM 4.1 mmol/L (3.5-5.1)
[2022-10-23 07:26] LABS: PHOSPHORUS 7.5 mg/dL (2.5-4.9)
[2022-10-23 08:00] VITALS: BP 146/79
[2022-10-23] MEDS: METOPROLOL 25 MG TAB PO SCH ×2 (08:39→20:54)
[2022-10-23] MEDS: DOCUSATE SODIUM 100 MG GELCAP PO SCH ×2 (08:39→20:50)
[2022-10-23] MEDS: PANTOPRAZOLE 40 MG INJ VIAL IVP SCH (08:40)
[2022-10-23] MEDS: ACETAMINOPHEN 325 MG TAB PO PRN ×2 (08:41→15:55)
[2022-10-23 08:47] LABS: CREATININE 8.5 mg/dL (0.6-1.3)
--- NOTE | 2022-10-23 09:29 | NUR ---
PATIENT HAS BEEN SCREENED AND CATEGORIZED MODERATE NUTRITION RISK. PATIENT WILL BE SEEN WITHIN 3-5 DAYS OF ADMISSION. REVIEWED BY CASA PADILLA RD Addendum: 10/23/22 at [address] FNS CONSULT RECEIVED ON 10/23/22 FOR SACRAL REDNESS AND "OBESE (BMI > 40 KG/M2)". CONSULT DOES NOT MEET HIGH RISK CRITERIA PER HOSPITAL POLICY. PT WILL BE SEEN AND ASSESSED ACCORDING TO THE NUTRITION CARE POLICY. REVIEWED BY CASA PADILLA RD
[2022-10-23 12:00] VITALS: BP 128/71
--- NOTE | 2022-10-23 13:50 | NUR ---
the blood pressure of the patient is dropping to 80/58 . the hemodialysis nurse will administer albumin
[2022-10-23] MEDS ORDERED: diphenhydrAMINE 50 MG/ML VIAL IVP PRN (14:40)
--- NOTE | 2022-10-23 14:47 | NUR ---
pateint complain of hives as allergy . dr delaney prescribe benadryl
--- NOTE | 2022-10-23 15:46 | NUR ---
hemodialysis done 1.5 liets out . tolerated the procedure . blood pressure 112/81, heart rate 96, temperature 96.5 . will continue to monitor
[2022-10-23 16:00] VITALS: BP 128/75
[2022-10-23] MEDS ORDERED: Z-GUARD PASTE TP ONE (17:22)
[2022-10-23] MEDS ORDERED: Z-GUARD PASTE TP PRN (17:35)
--- NOTE | 2022-10-23 18:40 | NUR ---
will endorse to security shift manager rn for continuity of care
--- NOTE | 2022-10-23 19:00 | NUR ---
RECEIVED ENDORSEMENT FROM LIANA BERRIOS (REGISTRY), PATIENT WAS STABLE DURING SHIFT REPORT. PATIENT HAD MOTHER AND COUSIN AT BEDSIDE. PATIENT IS AWARE OF WHY HE IS IN THE HOSPITAL. NO COMPLAINS OF PAIN/DISCOMFORT. NO COMPLAINS OF RESPIRATORY DISTRESS. CALL LIGHT WITHIN REACH SIDE RAILS UP X 3 FOR COMFORT AND SAFETY. [email or web address]
[2022-10-23 20:00] VITALS: BP 130/68
--- NOTE | 2022-10-23 20:00 | NUR ---
Patient's Plan of Care was discussed and reviewed with BINDERY CUTTER OPERATOR: DAVIN MARK
[2022-10-23] MEDS: HYDROcodone/APAP 7.5/325 MG 1 TAB PO PRN (21:23)
--- NOTE | 2022-10-23 22:23 | NUR ---
NURSING GAVE PATIENT EDUCATION REGARDING PT AT OTHER FACILITIES AND THE OPTION TO ASK FOR HOME HEALTH CARE THROUGH THE ANALYTICAL CHEMIST IN THE MORNING. PATIENT WAS GIVEN A PAIN PILL TO TREAT HEALING WOUNDS TO THE LEFT LATERAL LEG. PATIENT TOLERATED IT WELL. AREA WAS CLEANED AND A BANDAGE APPLIED TO PROTECT THE AREA. CALL LIGHT WITHIN REACT. SIDE RAILS UP X 3 FOR SAFETY AND COMFORT. APPLIED PILLOW TO INFECTED LEFT LEG TO KEEP ELEVATED PER MD ORDERS. [email or web address]
[2022-10-24] VITALS: BP 117/68
--- NOTE | 2022-10-24 01:00 | NUR ---
NURSING NOTED PATIENT IN BED ASLEEP WITH HEAD OF BED ELEVATED WITH LEFT LEG ELEVATED ON PILLOWS. CALL LIGHT WITHIN REACH. [email or web address]
[2022-10-24 04:00] VITALS: BP 131/78
--- NOTE | 2022-10-24 05:05 | NUR ---
PATIENT IS NOTED IN BED WITH THE HEAD OF BED IS ELEVATED SLEEPING. CALL LIGHT WITHIN REACH. SIDE RAILS UP X 3. [email or web address]
--- NOTE | 2022-10-24 07:07 | NUR ---
receive the patient from the assistant shift supervisor rn in rm 117 aox4 . with admitting diagnosis of acute kidney injury . will continue to monitor
--- NOTE | 2022-10-24 07:10 | NUR ---
ENDORSED PATIENT TO LIANA RN (REGISTRY) FOR CONTINUITY OF CARE, PATIENT WAS STABLE DURING SHIFT REPORTS. [email or web address]
[2022-10-24 07:24] LABS: BASOPHILS # (AUTO) 0.1 K/uL (0.00-0.22); BASOPHILS % (AUTO) 0.7 % (0.0-2.0); EOSINOPHILS # (AUTO) 1.3 K/uL (0-0.4); EOSINOPHILS % (AUTO) 18.1 % (0.0-4.0); HEMATOCRIT 29.5 % (36-52); HEMOGLOBIN 9.6 g/dL (12.0-18.0); LYMPHOCYTES % (AUTO) 26.6 % (20.5-51.1); MEAN CORPUSCULAR HEMOGLOBIN 26 pg (27-31); MEAN CORPUSCULAR HGB CONC 32 g/dL (33-37); MEAN CORPUSCULAR VOLUME 79.9 fL (80-94); MONOCYTES % (AUTO) 13.6 % (1.7-9.3); PLATELET COUNT (AUTO) 298 K/uL (140-450); RED BLOOD CELL COUNT(AUTO) 3.69 MIL/uL (4.20-6.10); RED CELL DISTRIBUTION WIDTH 16.3 % (11.6-13.7); WHITE BLOOD COUNT (AUTO) 7.4 K/uL (4.8-10.8)
[2022-10-24 07:31] LABS: ANION GAP 14.4 (8-16); CARBON DIOXIDE 23.6 mmol/L (21-32)
[2022-10-24 07:48] LABS: MAGNESIUM 2.1 mg/dL (1.8-2.4); PHOSPHORUS 7.2 mg/dL (2.5-4.9)
[2022-10-24 08:00] VITALS: BP 112/66
[2022-10-24 08:41] LABS: CREATININE 7.2 mg/dL (0.6-1.3)
[2022-10-24] MEDS: METOPROLOL 25 MG TAB PO SCH ×2 (09:35→20:51)
[2022-10-24] MEDS: DOCUSATE SODIUM 100 MG GELCAP PO SCH ×2 (09:35→20:50)
[2022-10-24] MEDS: PANTOPRAZOLE 40 MG INJ VIAL IVP SCH (09:36)
--- NOTE | 2022-10-24 10:30 | NUR ---
patient is inquiring about discharge , called will regarding this
[2022-10-24] MEDS: ACETAMINOPHEN 325 MG TAB PO PRN (11:01)
--- NOTE | 2022-10-24 11:30 | NUR ---
DC PLANNING ASSESSMENT COMPLETE PLEASE REFER TO ASSESSMENT FOR ADDITIONAL DETAILS MET WITH PT AT BEDSIDE TO COMPLETE ASSESSMENT. PT IS A 37 YR OLD MALE WHO WAS A RETURN TRANSFER FROM [facility] WITH DX OF SEPSIS. PT REPORTS BEING INDEPENDENT IN ALL ACTIVITIES ANS USE OF DME AT BASELINE PRIOR TO HOSPITALIZATION. PT REPORTS HE UNDERSTANDS HE WILL REQUIRE PHYSICAL THERAPY TO AID IN GETTING HIM BACK TO HIS BASELINE. PT HAS BEEN IN ACUTE CARE HOSPITALS FOR THE LAST 30+ DAYS. PT WAS TRANSFERRED TO [facility] ON 10/10 AND RETURNED TO [facility] 10/22. PT RESIDES IN A GROUND FLOOR APT WITH HIS FAMILY, AT THE ADDRESS LISTED ON FILE. PT REPORTS FAMILY HAS TAKEN TIME OFF OF WORK TO AID IN HIS CARE ONCE DC'D PT CURRENTLY WORKING ON PHYSICAL THERAPY WITH [facility] SCREWHEAD STONER AND POLISHER. PTS SNF [facility]ON[facility] STRONGLY RECOMMENDED SNF HOWEVER, PT REPORTS HE WANTS TO GO HOME WITH HOME EHALTH HE HAS FAMILY TO AID IN CARE. PT REPORTS TENTATIVE DC PLAN IS TO RETURN HOME WITH HOME HEALTH WITH FAMILY PROVIDING CARE AND TRANSPORTATION, WHEN MEDICALLY STABLE Addendum: 10/26/22 at 0902 by Oralia MILLAN Amended: Links added.
[2022-10-24 12:00] VITALS: BP 139/73
--- NOTE | 2022-10-24 14:45 | NUR ---
will the discharge disaster recovery manager talked with patient regarding the discharge .
--- NOTE | 2022-10-24 15:53 | NUR ---
HANNAH OLVERA RECEIVED ODER FOR PT TO GO TO SNF FOR PHYSICAL THERAPY. FAXED TO [facility]. GOT A CALL FROM [facility] LOCATED AT [address] [place] [address] WHO INFORMED ME THAT PT WAS NOT ACCEPTED FOR SNF OR FOR ACUTE PT. Addendum: 10/26/22 at 1616 by Citlaly Lang RN DC PLANNING: CM SPOKE WITH PATIENT REGARDING SNF PLACEMENT. PATIENT REFUSED TO GO TO SNF STATED HE HAS GOOD FAMILY SUPPORT AROUND THE CLOCK. PER PHYSICAL THERAPY NOTED ON 11/04 PATIENT WAKED 5 FEET AND TODAY PT WALKED [address]. NOLBERTO SPOKE WITH DR SPIVEY IMPROVEMENT LEADER AGREED FOR PATIENT TO GO HOME. CM DISCUSSED WITH PT'S SISTER ,FATHER AND COUSIN AND AUNT AND THEY ALL AGREED TO HELP HIM ON DAILY BASIS. HOME HEALTH ARRANGED WITH [facility] [employer] AUTH# [id number]. OUT [facility]IENT DIALYS[facility] WITH [facility] THE ADDRESS [address] [place], [place] [id number]. ARRANGED TRANSPORT WITH [facility] TRANSP[facility] M-[facility]- FOR DIALYSIS AND TO GO HOME WITH BARIATRIC TRANSPORT AWAITING FOR CONFIRMATION . CM TO FOLLOW Addendum: 10/26/22 at 1705 by Citlaly Lang RN DC PLANNING: CALLED [facility] STATED ARRANGED TRANSPORT WITH [facility] PHONE NUMBER [phone] AUTH FOR [facility] [id number] TUBE SPLICER TIME 6 PM NOTIFIED JENNIFER GARVIN NURSE
[2022-10-24 16:00] VITALS: BP 148/98
--- NOTE | 2022-10-24 19:03 | NUR ---
will endorse to night court magistrate rn for continuity of care
--- NOTE | 2022-10-24 19:30 | NUR ---
RECEIVED PT FROM AM NURSE FOR CONTINUITY OF CARE. PT IS STABLE
[2022-10-24 20:00] VITALS: BP 125/77
[2022-10-24] MEDS: HYDROcodone/APAP 7.5/325 MG 1 TAB PO PRN (20:50)
[2022-10-25] VITALS: BP 132/69
--- NOTE | 2022-10-25 01:00 | NUR ---
PATIENT ASLEEP , NO DISTRESS NOTED
[2022-10-25 04:00] VITALS: BP 130/64
--- NOTE | 2022-10-25 05:00 | NUR ---
OFFERED TO BE CLEANED, PATIENT REFUSED
[2022-10-25] MEDS: HYDROcodone/APAP 7.5/325 MG 1 TAB PO PRN ×2 (06:28→23:37)
--- NOTE | 2022-10-25 07:06 | NUR ---
receive the patient from the retail shift leader rn in rm 177 . aox4 with admitting diagnosis of acute kidney injury with hemodialysis . will continue to monitor
[2022-10-25 07:26] LABS: ANION GAP 16.1 (8-16); CARBON DIOXIDE 22.2 mmol/L (21-32); POTASSIUM 4.3 mmol/L (3.5-5.1)
[2022-10-25 07:27] LABS: MAGNESIUM 1.8 mg/dL (1.8-2.4); PHOSPHORUS 7.5 mg/dL (2.5-4.9)
[2022-10-25 07:29] LABS: BASOPHILS # (AUTO) 0.1 K/uL (0.00-0.22); BASOPHILS % (AUTO) 1.6 % (0.0-2.0); EOSINOPHILS # (AUTO) 1.9 K/uL (0-0.4); EOSINOPHILS % (AUTO) 23.5 % (0.0-4.0); HEMATOCRIT 28.9 % (36-52); HEMOGLOBIN 9.5 g/dL (12.0-18.0); LYMPHOCYTES # (AUTO) 1.6 K/uL (2.0-11.5); LYMPHOCYTES % (AUTO) 19.7 % (20.5-51.1); MEAN CORPUSCULAR HEMOGLOBIN 26 pg (27-31); MEAN CORPUSCULAR HGB CONC 33 g/dL (33-37); MEAN CORPUSCULAR VOLUME 80.2 fL (80-94); MONOCYTES # (AUTO) 0.8 K/uL (0.8-1.0); MONOCYTES % (AUTO) 9.9 % (1.7-9.3); NEUTROPHILS # (AUTO) 3.8 K/uL (1.8-7.7); NEUTROPHILS % (AUTO) 45.3 % (42.2-75.2); PLATELET COUNT (AUTO) 339 K/uL (140-450); RED BLOOD CELL COUNT(AUTO) 3.61 MIL/uL (4.20-6.10); RED CELL DISTRIBUTION WIDTH 16.7 % (11.6-13.7); WHITE BLOOD COUNT (AUTO) 8.3 K/uL (4.8-10.8)
[2022-10-25 07:52] LABS: CREATININE 8.7 mg/dL (0.6-1.3)
[2022-10-25 08:00] VITALS: BP 122/54
[2022-10-25] MEDS: METOPROLOL 25 MG TAB PO SCH ×2 (08:41→21:18)
[2022-10-25] MEDS: DOCUSATE SODIUM 100 MG GELCAP PO SCH ×2 (08:41→21:17)
[2022-10-25] MEDS: PANTOPRAZOLE 40 MG INJ VIAL IVP SCH (08:43)
[2022-10-25] MEDS ORDERED: ERGOCALCIFEROL 50,000 IU SGL PO SCH (09:00)
--- NOTE | 2022-10-25 11:20 | NUR ---
started with the hemodialysis of the patient . ended at 1420 pm tolerated well with the procedure blood pressure of 130/76 heart rate 103 temperature 98.6 . will continue to monitor
[2022-10-25 12:00] VITALS: BP 145/81
[2022-10-25 12:08] LABS: HEPATITIS A ANTIBODY IGM Negative (Negative); HEPATITIS B CORE AB TOTAL Negative (Negative); HEPATITIS B SURFACE ANTIBODY Reactive (.); HEPATITIS B SURFACE ANTIGEN Negative (Negative)
--- NOTE | 2022-10-25 12:26 | NUR ---
PHYSICAL THERAPY NOTE: UNABLE TO PROCEED WITH PHYSICAL THERAPY TREATMENT AT UPON PHYSICAL THERAPIST PROCESS TREATER'S ARRIVAL AT 10:30AM. BILINGUAL INSTRUCTOR CONFIRMED PATIENT TO START DIALYSIS. PROVIDED PATIENT EDUCATION ON NEURO RE ED TO OFFLOAD SENSITIVE AREAS AND SUPINE THER EX WITHIN BED TOLERATED. PATIENT AGREED. NOTIFIED PATIENT IS TO BE SEEN BY PHYSICAL THERAPIST AFTER DIALYSIS. PATIENT UNDERSTOOD. BILINGUAL INSTRUCTOR WITHIN ROOM. RN AWARE.
--- NOTE | 2022-10-25 16:45 | NUR ---
the patient had exercises with the pahysical therapist . seated on the edge of the walk . walk sideways on bedside . tolertaed the procedure . no sign and symptoms of respiratory distress . will continue to monitor
--- NOTE | 2022-10-25 18:15 | NUR ---
will endorse to master ocean yacht rn for continuity of care
--- NOTE | 2022-10-25 19:30 | NUR ---
RECEIVED PATIENT FROM AM NURSE FOR CONTINUITY OF CARE. PT IS STABLE
--- NOTE | 2022-10-26 07:06 | NUR ---
receive the patient from the date night caregiver rn in rm 117 aox4 with admitting diagnosis of acute kidney injury . will continue to monitor
[2022-10-26 07:37] LABS: BASOPHILS # (AUTO) 0.1 K/uL (0.00-0.22); BASOPHILS % (AUTO) 0.8 % (0.0-2.0); EOSINOPHILS # (AUTO) 2.1 K/uL (0-0.4); EOSINOPHILS % (AUTO) 21.1 % (0.0-4.0); HEMATOCRIT 29.5 % (36-52); HEMOGLOBIN 9.6 g/dL (12.0-18.0); LYMPHOCYTES # (AUTO) 1.9 K/uL (2.0-11.5); LYMPHOCYTES % (AUTO) 19.2 % (20.5-51.1); MEAN CORPUSCULAR HEMOGLOBIN 26 pg (27-31); MEAN CORPUSCULAR HGB CONC 33 g/dL (33-37); MEAN CORPUSCULAR VOLUME 79.7 fL (80-94); MONOCYTES # (AUTO) 1.2 K/uL (0.8-1.0); MONOCYTES % (AUTO) 11.7 % (1.7-9.3); NEUTROPHILS # (AUTO) 4.7 K/uL (1.8-7.7); NEUTROPHILS % (AUTO) 47.2 % (42.2-75.2); PLATELET COUNT (AUTO) 364 K/uL (140-450); RED BLOOD CELL COUNT(AUTO) 3.71 MIL/uL (4.20-6.10); RED CELL DISTRIBUTION WIDTH 16.3 % (11.6-13.7); WHITE BLOOD COUNT (AUTO) 9.9 K/uL (4.8-10.8)
[2022-10-26 07:43] LABS: MAGNESIUM 1.7 mg/dL (1.8-2.4)
[2022-10-26 08:00] LABS: CREATININE 7.4 mg/dL (0.6-1.3)
[2022-10-26] MEDS: DOCUSATE SODIUM 100 MG GELCAP PO SCH (08:59)
[2022-10-26] MEDS: METOPROLOL 25 MG TAB PO SCH (08:59)
[2022-10-26] MEDS: PANTOPRAZOLE 40 MG INJ VIAL IVP SCH (09:00)
[2022-10-26] MEDS ORDERED: METO25TA PO (11:09)
[2022-10-26] MEDS ORDERED: PANT20EC PO (11:09)
--- NOTE | 2022-10-26 11:30 | NUR ---
patient was seen by physical therapy . patient was able to tolerate the activity . no sign and symptoms of respiratory distress . no complain of pain
[2022-10-26 12:00] VITALS: BP 122/54
--- NOTE | 2022-10-26 13:46 | NUR ---
magnesium level was 1.7 . magnesium level was replaced
--- NOTE | 2022-10-26 17:55 | NUR ---
discharge home with home health for physical therapy in stable condition . hemodialysis is saturday schedule . no sign and symptoms of respiratory distress no complain of pain .
--- NOTE | 2022-10-29 14:04 | NUR ---
HANNAH OLVERA CALLED DR PAGAN OFFICE LOCATED AT [address] [facility] [address] SPOKE WITH HUSSAIN WHO INFORMED ME THAT PT ALREADY MADE AN APPOINTMENT FOR 10/30/2022 AT 1350. Addendum: 10/29/22 at 1608 by Citlaly Lang RN FAXED THE HOSPITAL BED ORDER TO [facility]. PER [facility] HOTEL OPERATIONS MANAGER THEY ARE CONTRACTED WITH PHYSICIAN [facility] SOON THEY RECEIVED THE AUTH WILL DELIVERY THE ORDERS. CM TO FOLLOW
== END 2022-10-26 17:30 | disposition home health service (06) | DRG 426 ==
LOC: MTU 14:30 → UNDOADMIN 14:30 → MTU 16:54
PROC: 5A1D70Z Performance of Urinary Filtration, Intermittent, Less than 6 Hours Per Day (ICD-10-PCS; principal; 2022-10-23)
PROC: 5A1D70Z Performance of Urinary Filtration, Intermittent, Less than 6 Hours Per Day (ICD-10-PCS; 2022-10-25)
DX: E87.1 Hypo-osmolality and hyponatremia (principal); N17.0 Acute kidney failure with tubular necrosis; E87.8 Other disorders of electrolyte and fluid balance, not elsewhere classified; Z68.44 Body mass index [BMI] 60.0-69.9, adult; E66.01 Morbid (severe) obesity due to excess calories; E78.5 Hyperlipidemia, unspecified; R73.03 Prediabetes; D64.9 Anemia, unspecified; N18.9 Chronic kidney disease, unspecified
CPT/HCPCS: 36415; 80048; 82140; 82150; 83036; 83605; 83690; 83735; 83880; 84100; 84439; 84443; 84484; 85025; 85610; 85730; 86704; 86706; 86708; 86709; 86803; 87081; 87340; 93005; 97110; 97112; 97116; 97163-GP; 97530; C9113; J1200; J1644; J3475; P9046